=== PATIENT | male | born 1930 | race Caucasian/White ===

== ENCOUNTER 2016-10-20 14:10 | Emergency (ER) | payer MEDICARE, BC ==
[2016-10-20 16:21] VITALS: BP 154/68
--- NOTE | 2016-10-20 16:22 | UC ---
Skin Complaint HPI - HPI Summary HPI Summary: 2 days ago brushed brown insect off of arm, thought he saw a small dark spot left there. Tried scratching/picking at the area, now has very small area of redness and swelling around the spot, still concerned that there is a stinger or other insect part retained. - History of Current Complaint Chief Complaint: UCSkin Time Seen by Provider: 10/20/16 16:03 Stated Complaint: STING W/STINGER STILL IN Hx Obtained From: Patient Onset/Duration: Sudden Onset Skin Exposure Onset/Duration: Days Ago Onset Severity: Mild Current Severity: Mild Location: Discrete Character: Swelling, Redness Aggravating: Nothing Alleviating: Nothing Associated Signs & Symptoms: Positive: Negative Related History: Insect Bite/Sting - Allergy/Home Medications Allergies/Adverse Reactions: Allergies Allergy/AdvReac Type Severity Reaction Status Date / Time No Known Allergies Allergy Verified 10/31/15 15:37 Review of Systems Constitutional: Negative Skin: Other - abrasion, swelling L forearm Eyes: Negative ENT: Negative Respiratory: Negative Cardiovascular: Negative Gastrointestinal: Negative Genitourinary: Negative Motor: Negative Neurovascular: Negative Musculoskeletal: Negative Neurological: Negative Psychological: Negative All Other Systems Reviewed And Are Negative: Yes PMH/Surg Hx/FS Hx/Imm Hx Endocrine History: Hypothyroidism Cardiovascular History: Hypertension - Surgical History Surgical History: Yes Surgery Procedure, Year, and Place: BILATERAL CATARACT EXTRACTION WITH IOL IMPLANTS, [facility]. 2014 RIGHT CARPAL TUNNEL RELEASE, [facility], PRECANCEROUS GROWTHS REMOVED FROM [facility], vein sx on rt leg july 2015 - Family History Known Family History: Positive: Hypertension - Social History Occupation: Retired Alcohol Use: Occasionally Alcohol Amount: ONCE A WEEK Substance Use Type: None Smoking Status (MU): Never Smoked Tobacco - Immunization History Most Recent Influenza Vaccination: Most Recent Tetanus Shot: In ED Most Recent Pneumonia Vaccination: Unknown exact time; pt states has had in past Physical Exam Triage Information Reviewed: Yes Appearance: Well-Appearing, No Pain Distress, Well-Nourished Vital Signs: Initial Vital Signs Temp 98 F 10/20/16 14:24 Pulse 57 10/20/16 14:24 Resp 14 10/20/16 14:24 BP 137/73 10/20/16 14:24 Pulse Ox 98 10/20/16 14:24 Vital Signs Reviewed: Yes Eye Exam: Normal Eyes: Positive: Conjunctiva Clear ENT Exam: Normal ENT: Positive: Normal ENT inspection, Hearing grossly normal, Pharynx normal, TMs normal Neck exam: Normal Neck: Positive: Supple, Nontender, No Lymphadenopathy Respiratory Exam: Normal Respiratory: Positive: Chest non-tender, Lungs clear, Normal breath sounds, No respiratory distress, No accessory muscle use Cardiovascular Exam: Normal Cardiovascular: Positive: RRR, No Murmur Musculoskeletal Exam: Normal Neurological Exam: Normal Psychological Exam: Normal Skin Exam: Other - 2 x 0.75cm linear abrasions on L forearm with very small area of redness around, minimal induration. No streaking, drainage, or abscess Course/Dx - Diagnoses Provider Diagnoses: L forearm insect sting Discharge - Discharge Plan Condition: Stable Disposition: HOME Prescriptions: Mupirocin 2% OINT* [Bactroban 2 % Oint*] 1 applic TOPICAL BID #1 tube Patient Education Materials: Insect Bite or Sting (ED) Referrals: Shawn Mosher MD [Primary Care Provider] - Additional Instructions: I expect the redness and itching on your arm to gradually go down from here. If there is significant swelling, redness, or worsening, please return here or see your primary care provider. I do not see any signs of stingers or other foreign bodies that have been left behind in your skin. Please do not scratch or pick at the area.
== END 2016-10-20 16:23 | disposition home or self-care (01) ==
LOC: UCEAST 14:10
DX: S50.862A Insect bite (nonvenomous) of left forearm, initial encounter (principal); W57.XXXA Bitten or stung by nonvenomous insect and other nonvenomous arthropods, initial encounter; Y93.9 Activity, unspecified; Y92.9 Unspecified place or not applicable; E03.9 Hypothyroidism, unspecified; I10 Essential (primary) hypertension; Z98.42 Cataract extraction status, left eye; Z98.41 Cataract extraction status, right eye; Z96.1 Presence of intraocular lens
CPT/HCPCS: 99212; G0463

== ENCOUNTER 2017-04-10 17:18 | Emergency (ER) | payer MEDICARE, BC ==
[2017-04-10 17:32] VITALS: BP 142/77
--- NOTE | 2017-04-10 17:39 | UC ---
Neck Pain HPI - HPI Summary HPI Summary: Pt presents with right sided neck pain. He tells me that the back of his right neck became painful about 10-14 days ago and has been intermittent ever since. Seems like it is getting worse. Feels like it is "locking up" and is "tight". Denies injury. He tells me that he fell on the ice today, but landed on his left leg and arm - did not hit his head and sustained no injuries. Has not been taking anything for pain. He denies headache, numbness, tingling, shoulder or arm pain. - History of Current Complaint Chief Complaint: Gabe Stated Complaint: HEAD AND NECK PAIN Time Seen by Provider: 04/10/17 17:33 Hx Obtained From: Patient Onset/Duration: Gradual Onset Severity: Moderate Pain Intensity: 8 Pain Scale Used: 0-10 Numeric Character: Dull, Aching - Allergies/Home Medications Allergies/Adverse Reactions: Allergies Allergy/AdvReac Type Severity Reaction Status Date / Time No Known Allergies Allergy Verified 04/10/17 17:26 Home Medications: Home Medications Metoprolol Succinate XL TAB* [Toprol XL TAB*] 100 mg PO DAILY 04/10/17 [History Confirmed 04/10/17] PMH/Surg Hx/FS Hx/Imm Hx - Additional Past Medical History Additional PMH: BPH Previously Healthy: Yes Endocrine History: Hypothyroidism, Dyslipidemia Cardiovascular History: Hypertension - Surgical History Surgical History: Yes Surgery Procedure, Year, and Place: BILATERAL CATARACT EXTRACTION WITH IOL IMPLANTS, [facility]. 2015 RIGHT CARPAL TUNNEL RELEASE, [facility], PRECANCEROUS GROWTHS REMOVED FROM [facility], vein sx on rt leg july 2015 - Family History Known Family History: Positive: Hypertension - Social History Occupation: Retired Lives: With Family Alcohol Use: Occasionally Alcohol Amount: ONCE A WEEK Substance Use Type: None Smoking Status (MU): Never Smoked Tobacco - Immunization History Most Recent Influenza Vaccination: 2013/2014 Most Recent Tetanus Shot: In ED Most Recent Pneumonia Vaccination: Unknown exact time; pt states has had in past Review Of Systems Constitutional: Positive: Negative Skin: Positive: Negative Cardiovascular: Positive: Negative Gastrointestinal: Positive: Negative Musculoskeletal: Positive: Other: - Right neck pain Psychological: Positive: Negative All Other Systems Reviewed And Are Negative: Yes Physical Exam Triage Information Reviewed: Yes Appearance: Well-Appearing, No Pain Distress, Well-Nourished Vital Signs: Initial Vital Signs Temp 97.9 F 04/10/17 17:21 Pulse 64 04/10/17 17:21 Resp 18 04/10/17 17:21 BP 142/77 04/10/17 17:21 Pulse Ox 100 04/10/17 17:21 Vital Signs Reviewed: Yes Eyes: Positive: Conjunctiva Clear, Other: - EOMI. PERRLA. Negative: Conjunctiva Inflamed, Discharge Neck: Positive: Supple, No Lymphadenopathy, Other: - At rest, neck is in a state of forward and lateral flexion to the right. FROM, but with pain on extension. Respiratory: Positive: Chest non-tender, Lungs clear, Normal breath sounds, No respiratory distress, No accessory muscle use Cardiovascular: Positive: RRR, Pulses Normal Musculoskeletal: Positive: Strength Intact - B/L UEs, ROM Intact - B/L UEs, No Edema, Other: - At rest, neck is in a state of forward and lateral flexion to the right. FROM, but with pain on extension. TTP over suboccipital muscles and levator on the right. 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 No obvious fracture is. noted. I suspect this is a cervical muscle strain/dystonia as this closely resembles torticollis/ anterocollis. Advised ibuprofen, benadryl at bedtime, and heat to the area. F/u with PCP if symptoms persist. - Differential Dx/Diagnosis Provider Diagnoses: Cervical muscle dystonia/spasm Discharge - Discharge Plan Condition: Stable Disposition: HOME Patient Education Materials: Spasmodic Torticollis (ED) Referrals: Ludwin Joel MD [Medical Doctor] - If Needed Shawn Mosher MD [Primary Care Provider] - If Needed Additional Instructions: If you develop a fever, shortness of breath, chest pain, new or worsening symptoms - please call your PCP or go to the ED. Your blood pressure was mildly elevated at todays visit. Please see your primary provider within 4 weeks for recheck and re-evaluation. 1) Try taking benadryl at bedtime. Heat the area with a heating pad for 20 minutes three or four times a day. 2) May take ibuprofen 600mg every 6-8 hours as needed. Can also try over the counter lidocaine patches if they will stick to the area. 3) Please schedule a follow up appointment with your PCP or with Orthopedics at the number below if your symptoms continue or worsen.
--- NOTE | 2017-04-10 18:49 | RAD ---
Indication: Neck pain. 5 views of the cervical spine are reviewed. The vertebral bodies appear normal in height. Disc space narrowing at C4-C5, C5-C6 and C6-C7 is noted. No prevertebral soft tissue swelling is noted. IMPRESSION: Degenerative disc disease at C4-C5, C5-C6 and C6-C7. No obvious fracture is noted.
== END 2017-04-10 19:10 | disposition home or self-care (01) ==
LOC: UCEAST 17:18
DX: G24.9 Dystonia, unspecified (principal); M62.838 Other muscle spasm; M50.323 Other cervical disc degeneration at C6-C7 level; N40.0 Benign prostatic hyperplasia without lower urinary tract symptoms; E03.9 Hypothyroidism, unspecified; E78.5 Hyperlipidemia, unspecified; I10 Essential (primary) hypertension; Z98.42 Cataract extraction status, left eye; Z98.41 Cataract extraction status, right eye; Z96.1 Presence of intraocular lens
CPT/HCPCS: 72050; 99212; G0463

== ENCOUNTER 2017-10-08 10:13 | Emergency (ER) | payer MEDICARE, BC ==
--- OUTSIDE RECORDS SUMMARY | 2017-10-08 10:25 | XMS REPORT ---
:1930 External Reference #:[id number] Author Organization [facility] Address [address] [place] [address] Phone [phone] Care Team Providers Name Role Phone Shawn Mosher MD Primary Care Physician Unavailable Payers Type Date Identification Numbers Payment Provider Subscriber Medicare Primary Effective: Policy Number: Medicare Parrish Sofia 1996 [id number] PayID: [id number] [address] [place] [address] [facility] Part B Effective: Policy Number: DEMETRIA Facets Janae Kimberlyn 2012 [id number] PayID: [id number] [address] [address] Medigap Part B Effective: Policy Number: BS Of MARIZOLThuy Cardoso F 2010 [id number] Pavladimir Expires: 2012 PayID: [id number] [address] [address] Problems Date Description Provider Status Onset: 08/25/2011 Benign essential hypertension Fortunato Ziegler M.D. Onset: 08/25/2011 Disturbance in sleep behavior Fortunato Ziegler M.D. Onset: 08/25/2011 Edema Fortunato Ziegler M.D. Onset: 08/25/2011 Electrocardiogram abnormal Fortunato Ziegler M.D. 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 Cigarette Use Never Smoked Cigarettes ETOH Use Occasionally consumes alcohol ETOH Use Drinks 1 Alcoholic Beverage Per Week Smoking Patient has never smoked Recreational Drug Use Denies Drug Use Daily Caffeine Consumes on average 2 cups of regular occas soda coffee per day Exercise Type/Frequency Does not exercise Allergies, Adverse Reactions, Alerts Date Description Reaction Status Severity Comments 04/16/2008 NKDA active Medications Medication Date Status Form Strength Qnty SIG Indications Ordering Provider Soft Foam Large 01/12 Active use as Soheila Farrell 41-46" Hernia Belt /2017 directed MD Jake Asa 04/16 Active 81mg 90uni 1 po qd sol Rollins M.D. Uloric Active Tablets 40mg 90tab po qd Unknown /0000 s Lasix Active Tablets 20mg 30tab 1 tab po Unknown / s qd Metoprolol Active Tablets 50mg twice Unknown Succinate ER /0000 ER 24HR daily, takes w/100mg in the morning Pravastatin Sodium Active Tablets 10mg 90tab 1 po qd Unknown /0000 s Levothyroxine Active Tablets 25mcg 90tab 1 po qd Unknown Sodium /0000 s Multivitamin Men Active Tablets 1 by mouth Unknown /0000 every day Finasteride Active Tablets 5mg 1 by mouth Unknown / every day Ropinirole HCL Active Tablets 1mg take one Unknown /0000 tablet by mouth at bedtime [place]-3 & Vitamin Active Chewtabs 117-100mg daily Unknown D3 Gummies /0000 -Unit Omeprazole 00/00 Active Tablets 20mg [address] every day Metoprolol 04/16 Hx Tablets 50mg 180ta 1 po bid Quta ER bs [facility] 08/24 , M.D. /2011 Avapro 04/16 Hx Tablets 150mg 90tab 1 po bid Qutayb s [facility] 06/02 , M.D. Hydrochlorothiazid 04/16 Hx Tablets 25mg 60tab 1 po qd [facility] , [facility] /2011 Proscar 04/16 Hx Tablets 5mg 90tab 1 po qd Qutayb s [facility] 08/24 , M.D. Fish Oil 04/16 [facility]x Capsules 1200[facility].DIsa Requip 04/16 Hx Tablets 1mg 30tab 1 tablet s twice a day [facility] 06/14 , M.D. Clobetasol 04/16 Hx Cream 0.05% 30G topically Qutaybeh Propionate qd [facility] 08/24 dx: , Nicolette /2011 dermatitis Norvasc 04/16 Hx Tablets 5mg 90tab 1 po qd Qutayb s [facility] 09/14 , M.D. Avapro Hx Tablets 150mg 1 po qd - 06/13 Carac Hx Cream 0.5% as directed - 08/24 Fish Oil Hx Capsules 1200 one po qid - 09/03 Finasteride Hx Tablets 5mg 1 po qd - 06/05 Famotidine Hx Tablets 20mg 60tab bid s - 06/05 Multivitamins Hx Tablets 100.0 1 po qd 0tabs - 06/05 Lovaza Hx Capsules 1gm 4x daily - 09/03 Proscar Hx Tablets 5mg 30tab 1 po qd Shallish, /0000 s MD Shawn Clobetasol Hx Gel 0.05% apply Unknown Propionate topically as needed Cyclobenzaprine Hx Tablets 10mg 30tab one po tid Unknown HCL /0000 s prn spasm - 06/05 Tylenol/Codeine #3 Hx Tablets 300-30mg 20tab 1-2 po q Unknown /0000 s 4-6 hr prn - pain 06/05 Calcipotriene Hx Cream 0.005% Unknown / Metoprolol Hx Tablets 100mg 1 by mouth Unknown Succinate ER /0000 ER 24HR every day in the morning along with a 50mg tablet Fish Oil Hx Capsules 1200mg once a day Unknown DR Requip Hx Tablets 270mg take one Unknown / tablet by mouth in the am and 2 in the pm Amlactin Hx Lotion 12% apply daily Unknown / Medications Administered in Office Medication Date Status Form Strength Qnty SIG Indications Ordering Provider Depomedrol Administered Injection Dirk Blayne, 40MG 017 M.D. Depomedrol Administered Injection Stoddard, Lien, 80MG 010 PA Vital Signs Date Vital Result Comment 09/25/2017 Heart Rate 66 /min BP Systolic Sitting 118 mmHg BP Diastolic Sitting 70 mmHg Respiratory Rate 18 /min Body Temperature 97.9 F 08/14/2017 Heart Rate 76 /min Respiratory Rate 16 /min Body Temperature 98.6 F 07/26/2017 Heart Rate 86 /min Respiratory Rate 16 /min Body Temperature 98.4 F 07/10/2017 Heart Rate 66 /min BP Systolic Sitting 134 mmHg BP Diastolic Sitting 78 mmHg Respiratory Rate 18 /min Body Temperature 97.6 F 06/18/2017 Heart Rate 68 /min BP Systolic 132 mmHg BP Diastolic 80 mmHg Respiratory Rate 18 /min Body Temperature 96.7 F 05/23/2017 Heart Rate 66 /min BP Systolic Sitting 144 mmHg BP Diastolic Sitting 72 mmHg Respiratory Rate 18 /min Body Temperature 97.5 F 04/06/2017 Heart Rate 62 /min Respiratory Rate 16 /min Body Temperature 97.2 F 01/24/2017 Heart Rate 68 /min BP Systolic 140 mmHg BP Diastolic 90 mmHg Respiratory Rate 16 /min Body Temperature 96.3 F 01/10/2017 Height 68 inches 5'8" Weight 185.00 lb Heart Rate 68 /min BP Systolic 142 mmHg BP Diastolic 90 mmHg Respiratory Rate 18 /min Body Temperature 97.6 F BMI (Body Mass Index) 28.1 kg/m2 11/15/2016 Height 68 inches 5'8" Weight 185.00 lb Heart Rate 54 /min BP Systolic 175 mmHg BP Diastolic 80 mmHg Body Temperature 95.8 F BMI (Body Mass Index) 28.1 kg/m2 10/04/2016 Height 68 inches 5'8" Weight 185.00 lb Heart Rate 62 /min BP Systolic 140 mmHg BP Diastolic 78 mmHg Body Temperature 98.3 F BMI (Body Mass Index) 28.1 kg/m2 08/08/2016 Height 69 inches 5'9" Weight 197.00 lb w/shoes Heart Rate 58 /min BP Systolic Sitting 138 mmHg Ra reg cuff BP Diastolic Sitting 80 mmHg Ra reg cuff BMI (Body Mass Index) 29.1 kg/m2 Ejection Fraction 55-60% Echo 08/02/16 06/14/2016 Height 69 inches 5'9" Weight 196.00 lb w/shoes Heart Rate 58 /min BP Systolic Sitting 158 mmHg LA reg cuff BP Diastolic Sitting 92 mmHg LA reg cuff BMI (Body Mass Index) 28.9 kg/m2 Ejection Fraction 60-65% Echo 10/23/14 02/02/2015 Height 69 inches 5'9" Weight 195.00 lb Pain Level 1 BMI (Body Mass Index) 28.8 kg/m2 12/15/2014 Height 69 inches 5'9" Weight 195.00 lb Body Temperature 97.3 F BMI (Body Mass Index) 28.8 kg/m2 12/10/2014 Height 69 inches 5'9" Weight 195.00 lb Pain Level 2 BMI (Body Mass Index) 28.8 kg/m2 11/06/2014 Height 69 inches 5'9" Weight 195.00 lb Pain Level 4 BMI (Body Mass Index) 28.8 kg/m2 05/12/2013 Height 69 inches 5'9" Weight 205.00 lb BP Systolic 148 mmHg BP Diastolic 82 mmHg Pain Level 3-4 neck BMI (Body Mass Index) 30.3 kg/m2 01/29/2013 Height 69 inches 5'9" Weight 201.00 lb Heart Rate 72 /min BP Systolic Sitting 132 mmHg BP Diastolic Sitting 74 mmHg Respiratory Rate 20 /min BMI (Body Mass Index) 29.7 kg/m2 12/18/2012 Height 69 inches 5'9" Weight 205.00 lb BP Systolic 124 mmHg BP Diastolic 78 mmHg Pain Level 4-5 neck BMI (Body Mass Index) 30.3 kg/m2 06/07/2012 Height 69 inches 5'9" Weight 198.00 lb Heart Rate 60 /min BP Systolic Sitting 126 mmHg BP Diastolic Sitting 78 mmHg Respiratory Rate 20 /min BMI (Body Mass Index) 29.2 kg/m2 09/11/2011 Height 69 inches 5'9" Weight 213.00 lb Heart Rate 68 /min BP Systolic Sitting 108 mmHg BP Diastolic Sitting 64 mmHg BMI (Body Mass Index) 31.5 kg/m2 09/04/2011 Height 69 inches 5'9" Weight 213.00 lb Heart Rate 64 /min BP Systolic 140 mmHg BP Diastolic 72 mmHg BMI (Body Mass Index) 31.5 kg/m2 08/25/2011 Height 69 inches 5'9" Weight 212.00 lb Heart Rate 53 /min BP Systolic 122 mmHg BP Diastolic 66 mmHg BMI (Body Mass Index) 31.3 kg/m2 09/14/2009 Weight 206.00 lb Heart Rate 53 /min BP Systolic 140 mmHg BP Diastolic 80 mmHg Respiratory Rate 18 /min BMI (Body Mass Index) 51.6 kg/m2 06/02/2009 Height 69 inches 5'9" Weight 206.00 lb Heart Rate 61 /min BP Systolic Sitting 124 mmHg L BP Diastolic Sitting 70 mmHg L BMI (Body Mass Index) 30.4 kg/m2 05/26/2008 Weight 206.00 lb Heart Rate 60 /min BP Systolic Sitting 130 mmHg BP Diastolic Sitting 68 mmHg Respiratory Rate 16 /min 04/16/2008 Height 69 inches 5'9" Weight 204.00 lb Heart Rate 59 /min BP Systolic Sitting 142 mmHg L BP Diastolic Sitting 84 mmHg L BMI (Body Mass Index) 30.1 kg/m2 Results Description No Information Procedures Date CPT Code Description Status 10/04/2016 60178 Inject/Drain Joint/Bursa Major W/O US Completed 08/02/2016 60519 ECHO Transthoracic, Real-Time 2D With Doppler And Color Completed Flow 06/14/2016 07091 Holter Monitor Review (24 hr)dr review & interp only Completed 06/14/2016 36195 EKG Tracing & Interpretation Completed 06/13/2016 21694 Holter Monitor Review (24 hr)dr review & interp only Completed 06/13/2016 51998 ECG Monitor/Recording W/Visual Superimposition Scanning Completed 06/12/2016 70452 ECG Monitor/Recording W/Visual Superimposition Scanning Completed 01/14/2015 94425 Removal Devitalization Tissue Wound Less Than Equal 20 Completed Square CM 01/05/2015 79923 Removal Devitalization Tissue Wound Less Than Equal 20 Completed Square CM 12/24/2014 19332 Removal Devitalization Tissue Wound Less Than Equal 20 Completed Square CM 12/24/2014 50779 Removal Devitalized Tissue Wound Greater Than 20 Square Completed CM 12/03/2014 71361 Carpal Tunnel Release Completed 10/23/2014 16927 ECHO Transthorasic Realtime 2D W Doppler & Color Flow Completed Hosp 10/24/2013 77746 Nerve Conduction 07-08 Studies Completed 01/29/2013 54297 EKG Tracing & Interpretation Completed 01/21/2013 75302 ECHO Transthoracic, Real-Time 2D With Doppler And Color Completed Flow 06/07/2012 31448 EKG Tracing & Interpretation Completed 09/04/2011 06263 ECHO Transthorasic Realtime 2D W Doppler & Color Flow Completed Hosp 09/04/2011 57759 Pulse Wave/Continuous-Interp.RPT Completed 09/04/2011 64296 Color Flow Doppler/Interp & Reprt Completed 08/25/2011 03449 EKG Tracing & Interpretation Completed 09/14/2009 20942 EKG Tracing & Interpretation Completed 08/09/2009 64684 Xray Knee 3 Views Completed 08/09/2009 31627 Xray Knee 3 Views Completed 08/09/2009 93040 Inject/Drain Joint/Bursa Major W/O US Completed 08/09/2009 21687 Inject/Drain Joint/Bursa Major W/O US Completed 06/02/2009 51405 EKG Tracing & Interpretation Completed 05/07/2008 80170 Stress Test Completed 05/07/2008 87122 Stress Test Completed 05/07/2008 87531 ECHO/Stress Completed 05/07/2008 85901 ECHO/Stress Completed 05/07/2008 22511 ECHO Stress Test Incl Perf Contiuous ekg Monitoring Completed W/Phys Superv 05/01/2008 61360 Color Doppler Completed 05/01/2008 12385 Pulse Doppler & Continuous Wave Completed 05/01/2008 44766 Echocardiogram Completed 05/01/2008 78838 ECHO Transthoracic, Real-Time 2D With Doppler And Color Completed Flow 04/16/2008 84198 EKG Tracing & Interpretation Completed Encounters Type Date Location Provider CPT E/M Dx Office Visit 08/14/2017 [facility] [place] [address] K40.90 2:15p Of [facility] [employer] Office Visit 07/26/2017 [facility] Immanuel Marley, 87490 K40.90 1:15p Of [facility] Office Visit 07/10/2017 [facility] [place] [address] K40.90 1:30p Of [facility] [employer] Office Visit 06/18/2017 [facility] Immanuel Marley, 57457 K40.90 1:15p Of [facility] Office Visit 05/23/2017 [facility] [place] [address] K40.90 9:00a Of [facility] [employer] Office Visit 04/06/2017 [facility] [place] [address] K40.90 10:00a Of [facility] Office Visit 01/24/2017 [facility] [place] [address] K40.90 11:00a Of [facility] [employer] Office Visit 01/10/2017 [facility] [place] [address] K40.90 9:00a Of [facility] Office Visit 11/15/2016 [facility] Avery Cisneros M.D. 70845 M17.12 9:15a [facility] Office Visit 10/04/2016 [facility] Avery Cisneros M.D. 22576 M17.12 10:15a [facility] Office Visit 08/08/2016 [facility] July Bejarano 63829 I49.1 4:00p Nicolette Rollins I10 I49.3 Office Visit 06/14/2016 2:20p [facility] Antonitaybjennifer Rollins, 62194 R00.2 Nicolette I10 I49.1 I49.3 I71.9 R00.1 Office Visit 06/29/2015 10:18a [facility] Brice Carranza, 06381 L97.212 AT [facility] Nicolette I87.331 Office Visit 01/26/2015 9:22a [facility] Brice Carranza, 58501 I70.232 AT [facility] I83.012 E11.621 I89.0 Office Visit 01/21/2015 8:58a [facility]ranza, 85049 [facility] I[facility].012 E11.621 Office Visit 12/24/2014 11:03a [facility] Brice Carranza, 63785 I83.012 [facility] I70.232 Office Visit 11/06/2014 11:40a [facility] Marian 77293 354.0 Of Jose Calix M.D. Office Visit 10/23/2014 12:35p [facility], 49684 780.2 [facility] Nicolette 401.9 585.3 272.4 Office Visit 05/12/2013 9:30a [facility] Brice Henning M.D. 09797 721.0 Of [facility] Office Visit 01/29/2013 10:00a [facility] Antonitaybjennifer S. 33442 401.1 Nicolette Rollins 424.0 427.69 794.31 Office Visit 12/18/2012 2:30p [facility] Brice Henning M.D. 25598 721.0 Of [facility] Office Visit 06/07/2012 8:40a [facility] Qutaybjennifer S. 89447 401.1 Nicolette Rollins 782.3 794.31 780.50 Office Visit 09/25/2011 10:00a [facility] Nurse Visit 57587 401.1 Office Visit 09/11/2011 8:30a [facility] Consuelo Turner N.PIsa 97307 401.1 782.3 Office Visit 09/04/2011 1:30p [facility] Consuelo Turner N.PIsa 90725 401.1 Office Visit 08/25/2011 2:00p [facility] Antonitaybeh Darci Rollins 17719 401.1 Nicolette 780.50 782.3 794.31 Office Visit 08/24/2010 9:00a [facility] Of Will Cope, 34558 721.3 Alverto Will 719.46 Office Visit 09/14/2009 11:20a [facility] Qutaybeh S. 80417 401.1 Nicolette Rollins Office Visit 08/09/2009 1:00p [place] [address] 716.96 [facility] Office Visit 06/02/2009 8:40a [facility] Antonitaybeh S. 78671 401.1 Nicolette Rollins 780.50 794.31 Office Visit 05/26/2008 8:20a [facility] Qutaybeh SIsa Rollins, 53864 401.1 Nicolette 780.50 Office Visit 04/16/2008 3:40p [facility] Qutaybeh SIsa Rollins, 29616 401.0 MKayli 786.50 794.31 Plan of Care 08/14/2017 - Soheila Joseph MDK40.90 Unil inguinal hernia, w/o obst or gangr, not spcf as recurFollow up:As needed
--- NOTE | 2017-10-08 10:28 | UC ---
Truncal Trauma HPI - HPI Summary HPI Summary: 87 yo male presents s/p fall. He tells me that yesterday he was walking down concrete steps and misjudged how far down the step was. Tripped and fell onto his left side. Did not hit his head or have LOC. Here today with left rib pain and left upper arm pain. Denies numbness, tingling, SOB, cough, or chest pain. - History Of Current Complaint Chief Complaint: UCUpperExtremity Stated Complaint: RIB INJURY Time Seen by Provider: 10/08/17 10:26 Hx Obtained From: Patient Onset/Duration: Sudden Onset Severity Initially: Severe Severity Currently: Severe Pain Intensity: 8 Pain Scale Used: 0-10 Numeric - Allergies/Home Medications Allergies/Adverse Reactions: Allergies Allergy/AdvReac Type Severity Reaction Status Date / Time No Known Allergies Allergy Verified 10/08/17 10:30 Home Medications: Home Medications Penicillin VK TAB* [Penicillin VK 250 mg Tab*] 500 mg PO QID 10/08/17 [History Confirmed 10/08/17] PMH/Surg Hx/FS Hx/Imm Hx - Additional Past Medical History Additional PMH: BPH Endocrine History: Thyroid Disease, Dyslipidemia Cardiovascular History: Hypertension - Surgical History Surgical History: Yes Surgery Procedure, Year, and Place: BILATERAL CATARACT EXTRACTION WITH IOL IMPLANTS, [facility]. 2014 RIGHT CARPAL TUNNEL RELEASE, [facility], PRECANCEROUS GROWTHS REMOVED FROM SCALP, vein sx on rt leg july 2015 - Family History Known Family History: Positive: Hypertension - Social History Occupation: Retired Lives: With Family Alcohol Use: Occasionally Alcohol Amount: ONCE A WEEK Substance Use Type: None Smoking Status (MU): Never Smoked Tobacco - Immunization History Most Recent Influenza Vaccination: Most Recent Tetanus Shot: In ED Most Recent Pneumonia Vaccination: Unknown exact time; pt states has had in past Review of Systems Constitutional: Negative Skin: Negative Respiratory: Negative Cardiovascular: Negative Neurovascular: Negative Musculoskeletal: Other: - Left Rib pain. Left upper arm pain. Neurological: Negative Psychological: Negative All Other Systems Reviewed And Are Negative: Yes Physical Exam - Summary Physical Exam Summary: GENERAL: NAD. WDWN. No pain distress. SKIN: Large ecchymosis to left upper arm. No open wounds. NECK: Supple. Nontender. No lymphadenopathy. CHEST: CTAB. No r/r/w. No accessory muscle use. Breathing comfortably and in no distress. CV: Pulses intact radial and ulnar. MSK: LEFT ribs: TTP 6th-9th. LEFT shoulder: NTTP. FROM passively. LEFT upper arm : Moderate TTP overlying area of ecchymosis. Left elbow/wrist/fingers: NTTP and FROM. Left UE: Strength 5/5 including shoe stitcher odd strength. No obvious bony deformities. NEURO: Alert. Sensations intact hand and all fingers. PSYCH: Age appropriate behavior. Triage Information Reviewed: Yes Vital Signs: Vital Signs: Temp Pulse Resp BP Pulse Ox 97.9 F 67 18 130/72 98 10/08/17 10:22 10/08/17 10:22 10/08/17 10:22 10/08/17 10:22 10/08/17 10:22 Vital Signs Reviewed: Yes Truncal Trauma Course/Dx - Course Course Of Treatment: XR: IMPRESSION: OSTEOARTHRITIS. NO ACUTE OSSEOUS INJURY. IF SYMPTOMS PERSIST, RECOMMEND REPEAT IMAGING. FINDINGS: There is no displaced rib fracture or pneumothorax. The visualized lungs are. clear. There is a scoliotic curvature of the spine. Suspect rib and arm contusion. Rx for lidocaine patch. F/u with PCP if symptoms persist or worsen. - Differential Dx/Diagnosis Provider Diagnoses: Left rib contusion. Left arm contusion. Fall Discharge - Sign-Out/Discharge Documenting (check all that apply): Patient Departure - Discharge Plan Condition: Stable Disposition: HOME Prescriptions: Lidocaine PATCH 5%* [Lidoderm 5% Patch*] 1 patch TRANSDERM DAILY PRN #1 box PRN Reason: Pain Patient Education Materials: Rib Contusion (ED) Referrals: Shawn Mosher MD [Primary Care Provider] - Additional Instructions: If you develop a fever, shortness of breath, chest pain, new or worsening symptoms - please call your PCP or go to the ED. Your blood pressure was high at todays visit. Please see your primary provider within 4 weeks for recheck and re-evaluation. - Billing Disposition and Condition Condition: STABLE Disposition: Home
[2017-10-08 10:30] VITALS: BP 130/72
--- NOTE | 2017-10-08 11:19 | RAD ---
HISTORY: Pain. Fall left-sided pain COMPARISONS: None VIEWS: 7, Frontal view of the chest with frontal and oblique views of the left hemithorax FINDINGS: There is no displaced rib fracture or pneumothorax. The visualized lungs are clear. There is a scoliotic curvature of the spine. IMPRESSION: NO DISPLACED RIB FRACTURE OR PNEUMOTHORAX.
--- NOTE | 2017-10-08 11:22 | RAD ---
HISTORY: Pain. Fall COMPARISONS: None VIEWS: 2, Frontal internal rotation and external rotation views of the left humerus FINDINGS: BONE DENSITY: Normal. BONES: There is no displaced fracture. JOINTS: There is moderate a.c. and glenohumeral osteoarthritis. ALIGNMENT: There is no dislocation. SOFT TISSUES: Unremarkable. OTHER FINDINGS: None. IMPRESSION: OSTEOARTHRITIS. NO ACUTE OSSEOUS INJURY. IF SYMPTOMS PERSIST, RECOMMEND REPEAT IMAGING.
== END 2017-10-08 11:41 | disposition home or self-care (01) ==
LOC: UCEAST 10:13
DX: S20.212A Contusion of left front wall of thorax, initial encounter (principal); S40.022A Contusion of left upper arm, initial encounter; I10 Essential (primary) hypertension; W01.0XXA Fall on same level from slipping, tripping and stumbling without subsequent striking against object, initial encounter; Y92.9 Unspecified place or not applicable
CPT/HCPCS: 99212; G0463

== ENCOUNTER 2017-11-04 16:25 | Emergency (ER) | payer MEDICARE, BC ==
[2017-11-04] MEDS ORDERED: Ondansetron INJ* 2 MG/ML VIAL IV ONE (16:41)
[2017-11-04] MEDS ORDERED: Morphine VIAL* 4 MG/ML VIAL (1 ml vial) IV ONE (16:41)
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
[2017-11-04] MEDS ORDERED: Morphine INJ* 2 MG/ML 1 ML SYRINGE (TWO MG - NEW SYRINGE VERSION) ONE (16:57)
[2017-11-04] MEDS ORDERED: Morphine INJ* 2 MG/ML 1 ML SYRINGE (TWO MG - NEW SYRINGE VERSION) IV PRN (16:58)
[2017-11-04 16:59] LABS: Hematocrit 38 % (42-52); Hemoglobin 13.2 g/dl (14.0-18.0); Mean Corpuscular HGB Conc 35 g/dl (31-36); Mean Corpuscular Hemoglobin 30 pg (27-31); Mean Corpuscular Volume 87 fL (80-94); Mean Platelet Volume 8.8 um3 (7.4-10.4); Platelet Count 249 10^3/ul (150-450); Red Blood Count 4.43 10^6/ul (4.00-5.40); Red Cell Distribution Width 14 % (10.5-15); White Blood Count 6.4 10^3/ul (3.5-10.8)
[2017-11-04 17:15] LABS: EGFR Non-African American 44.4 (>60)
[2017-11-04] MEDS ORDERED: NS 0.9% 1000 ML* 1,000 ML IV ONE (17:23)
--- NOTE | 2017-11-04 17:41 | RAD ---
HISTORY: FALL PAIN COMPARISONS: None VIEWS: 2, Frontal and lateral views of the left elbow FINDINGS: BONE DENSITY: Normal. BONES: There is no displaced fracture. JOINTS: There is mild osteoarthritis of the ulnar-trochlear articulation. ALIGNMENT: There is no dislocation. SOFT TISSUES: Unremarkable. OTHER FINDINGS: None. IMPRESSION: OSTEOARTHRITIS. NO ACUTE OSSEOUS INJURY. IF SYMPTOMS PERSIST, RECOMMEND REPEAT IMAGING.
--- NOTE | 2017-11-04 17:41 | RAD ---
HISTORY: FALL PAIN, DEFORMITY, R/O DISLOC COMPARISONS: None VIEWS: 6, Frontal internal rotation, external rotation, and outlet views of the left shoulder FINDINGS: BONE DENSITY: Normal. BONES: There is no displaced fracture. JOINTS: There is osteoarthritis of the a.c. and glenohumeral joints. ALIGNMENT: There is anterior dislocation of the humeral head with persistent glenoid fossa. SOFT TISSUES: Unremarkable. OTHER FINDINGS: None. IMPRESSION: LEFT SHOULDER DISLOCATION.
--- NOTE | 2017-11-04 17:42 | RAD ---
HISTORY: FALL PAIN COMPARISONS: October 08, 2017 VIEWS: 4, Frontal view of the chest with frontal and oblique views of the left hemithorax FINDINGS: There is no displaced rib fracture or pneumothorax. The visualized lungs are clear. As noted on the left shoulder series, there is left shoulder dislocation. IMPRESSION: LEFT SHOULDER DISLOCATION. NO DISPLACED RIB FRACTURE OR PNEUMOTHORAX.
[2017-11-04] MEDS ORDERED: fentaNYL* 50 MCG/ML 2 ML VIAL (100 MCG VIAL) ONE (17:53)
[2017-11-04] MEDS ORDERED: Atropine 1MG/ML INJ* 1 ML VIAL ONE (17:53)
[2017-11-04] MEDS ORDERED: EPHEDrine (Pressors)* 50 MG/ML VIAL ONE (17:53)
[2017-11-04] MEDS ORDERED: Propofol* 10 MG/ML 20 ML BTL IV PUSH ONE ×2 (17:53→17:54)
[2017-11-04] MEDS ORDERED: Succinylcholine* 20 MG/ML 10 ML VIAL ONE (17:53)
[2017-11-04] MEDS ORDERED: Midazolam* 1 MG/ML 5 ML VIAL (5 MG) ONE (17:53)
[2017-11-04] MEDS ORDERED: Lidocaine 2% PF * 5 ML VIAL ONE (17:53)
--- NOTE | 2017-11-04 18:26 | RAD ---
HISTORY: POST REDUCTION COMPARISONS: November 04, 2017 at 5:05 PM VIEWS: 2, frontal and outlet views of the left shoulder FINDINGS: BONE DENSITY: Normal. BONES: There is minimal fragmentation along the greater tuberosity of the left humerus suggestive of a Hill-Sachs injury. JOINTS: There is mild osteoarthritis of the a.c. and glenohumeral joints. ALIGNMENT: There has been interval reduction of the left shoulder dislocation. SOFT TISSUES: Unremarkable. OTHER FINDINGS: None. IMPRESSION: INTERVAL REDUCTION OF LEFT SHOULDER DISLOCATION WITH PROBABLE SMALL HILL-SACHS DEFORMITY OF THE HUMERAL HEAD
[2017-11-04 19:06] VITALS: BP 117/60
== END 2017-11-04 19:28 | disposition home or self-care (01) ==
LOC: ED 16:25
DX: S43.085A Other dislocation of left shoulder joint, initial encounter (principal); E03.9 Hypothyroidism, unspecified; I25.10 Atherosclerotic heart disease of native coronary artery without angina pectoris; I10 Essential (primary) hypertension; W10.9XXA Fall (on) (from) unspecified stairs and steps, initial encounter; Y92.9 Unspecified place or not applicable
CPT/HCPCS: 23650; 36415; 80048; 85027; 93005; 96361; 96374; 96375; 99284; J0330; J0461; J2250; J2270; J2405; J2704; J3010

== ENCOUNTER → 2018-01-10 06:25 | Day surgery (SDC) | payer MEDICARE, BC ==
--- NOTE | 2017-12-25 17:25 | HP ---
CC: Dr. Mosher; Dr. Rollins * PREOPERATIVE HISTORY AND PHYSICAL: DATE OF ADMISSION: 01/10/18 DATE OF PREOPERATIVE HISTORY AND PHYSICAL EXAMINATION: 12/25/17. This patient is scheduled for same-day surgery admission by Dr. De La Cruz on , 01/10/18. ATTENDING SURGEON: Dr. Jh De La Cruz *(dictated by Mahnaz Brunson NP). CHIEF COMPLAINT: Right groin hernia. HISTORY OF PRESENT ILLNESS: The patient is an 87-year-old male, referred to Dr. De La Cruz from Dr. Mosher for evaluation of a right inguinal hernia. The patient reports that he has had this hernia for some time and has actually seen several other providers in this practice. More recently, he thought it was a little larger and more uncomfortable. He denies any signs or symptoms to suggest incarceration or strangulation. He has never had abdominal or inguinal surgery. Dr. De La Cruz examined the patient and notes a moderately large right inguinal hernia that is down into the scrotum; it is soft and nontender and not easily reducible with him standing. The left side is without herniation. Dr. De La Cruz discussed the findings with the patient and his son and has recommended open right inguinal hernia repair with mesh as the same day surgery procedure. He discussed the nature of the surgical procedure, the rationale for the procedure, the relevant risks and benefits and today, I reviewed the typical postoperative care and recovery. The patient and his son has had a chance to ask questions and stated that they understand the information and are satisfied with the answers given to their questions. The patient will sign surgical consent on the day of surgery. PAST MEDICAL HISTORY: Significant for hypertension; hyperlipidemia; cervical spondylosis; GERD; Graves' disease, status post radioactive iodine; benign prostatic hypertrophy; hemorrhoids; gout; chronic renal insufficiency; chronic lymphedema of the lower extremities. PAST SURGICAL HISTORY: Bilateral cataract extraction; right carpal tunnel release; femoral popliteal revascularization on the right; excision of basal cell cancer from the scalp. MEDICATIONS: 1. Omeprazole 20 mg p.o. daily. 2. Pravastatin 10 mg p.o. daily. 3. Furosemide 20 mg 1 to 2 tablets daily. 4. Ropinirole 1 mg 1 tablet every morning and 2 tablets every evening. 5. Levothyroxine 25 mcg 1 tablet daily. 6. Finasteride 5 mg 1 tablet daily. 7. Uloric 40 mg 1 tablet daily. 8. Metoprolol ER 50 mg p.o. b.i.d. 9. Aspirin 81 mg p.o. daily and he will hold that for 5 days preoperatively taking last dose 01/04/18. 10. He also takes fish oil supplements. ALLERGIES: No known drug allergies. FAMILY HISTORY: Father at age 70 due to cirrhosis. Mother due to stroke and myocardial infarction. 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 He rarely drinks alcohol and denies the use of other substances; his son accompanied him to the visit today and will be very supportive to the patient postoperatively and will arrange family support for approximately 3 days postoperatively. REVIEW OF SYSTEMS: Constitutional: No fevers or chills. No recent weight loss. Endocrine: No diabetes; he is on thyroid replacement, status post radioactive iodine treatment for Graves' disease. Hematologic: No easy bruising or bleeding. He has never received a blood transfusion. Respiratory: No chronic cough. Dyspnea on mild exertion. Cardiovascular: No anginal chest pain or palpitations; he is followed by Dr. Rollins; he had echocardiogram in July of 2016 with normal left ventricular systolic function with EF 55% to 60%; he had a recent Holter monitor that revealed frequent PACs and rare to occasional PVCs. He has chronic swelling of the lower extremities; he will have an EKG with his preadmission testing today and Dr. De L aCruz sent a message to Dr. Rollins to review the EKG and also to advice is if any other preoperative cardiology workup was indicated. Gastrointestinal: No nausea or vomiting. No chronic diarrhea or chronic constipation. No change in bowel habits. He does have hemorrhoids, but no GI bleeding. Genitourinary: No dysuria, history of benign prostatic hypertrophy. Musculoskeletal: Mild lower back pain. Integumentary: Bilateral lower extremities with changes of venous stasis. No ulcerations. Chronic edema of the lower extremities and he wears compression stockings and also uses machine at home to relieve the lymphedema. Neurologic: No headache or blurred vision. No areas of focal weakness or numbness. General: No history of deep vein thrombosis or pulmonary embolism, no previous anesthesia complications. PHYSICAL EXAMINATION GENERAL SURVEY: The patient is an 87-year-old male, somewhat frail appearing, overweight, in no acute distress. VITAL SIGNS: Height 69 inches, weight 187 pounds, body mass index 27.6, blood pressure 122/72, pulse 60 and somewhat irregular, respiratory rate 18, temperature 98.1 tympanic. HEENT: Benign. NECK: Supple. No cervical lymphadenopathy. No carotid bruits. LUNGS: Breath sounds bilaterally clear and equal. HEART: Irregular, but no irregularly irregular. No obvious murmurs or rubs. ABDOMEN: Obese, soft, active bowel sounds. Inguinal exam is done by Dr. De La Cruz revealed a moderately large right inguinal hernia down into the scrotum, soft, nontender, not easily reducible with the patient standing. Left inguinal region is without herniation. RECTAL EXAM: Deferred. EXTREMITIES: With lower extremities with 1+ pitting edema bilaterally and changes of venous stasis, but no ulcerations. NEUROLOGIC: Alert and oriented x3. Steady gait. Limited mobility of the left upper extremity due to left shoulder dislocation in October 2017. SKIN: Warm, dry, and intact. IMPRESSION: Right inguinal hernia. PLAN: Same-day surgery admission to Dr. De La Cruz's service on , 01/10/18 , for open right inguinal hernia repair with mesh. JIM BRUNSON NP [id number]/[facility] #: [id number] [place]
[~2018-01-10 06:25] MED LIST: Acetaminophen TAB* 325 MG PO PRN; Buffered Lidocaine 0.9% SYRIN* 5 ML/SYR SYRINGE INTRADERM ONE; Buffered Lidocaine 0.9% SYRIN* 5 ML/SYR SYRINGE ONE; Bupivacaine 0.25% W/EPI* 10 ML SDV ONE; Bupivacaine 0.5% W/EPI SDV* 30 ML VIAL ONE; Cocaine 4% TOPICAL* 4 ML TOP.SOLN ONE; EPHEDrine (Pressors)* 50 MG/ML VIAL ONE; Famotidine IV* 10 MG/ML 2 ML (20 mg) ONE; HYDROcodone/ACETAMIN 5-325 MG* 1 TAB ONE; HYDROcodone/ACETAMIN 5-325 MG* 1 TAB PO PRN; Lidocaine 1% INJ* 10 MG/ML 30 ML SDV ONE; Lidocaine 2% PF * 5 ML VIAL ONE; Midazolam* 1 MG/ML 2 ML VIAL (2 MG) ONE; Naloxone* 0.4 MG/ML 1 ML VIAL IV PRN; Ondansetron INJ* 2 MG/ML VIAL IV PRN; Ondansetron INJ* 2 MG/ML VIAL ONE; PROCHLORPERAZINE INJ 5 MG/ML 2 ML VIAL IV PRN; Propofol* 10 MG/ML 20 ML BTL IV PUSH ONE; ceFAZolin 2 GM PREMIX in ORs 2 GM/50 ML BAG IVPB ONE; diPHENhydraMINE IV* 50 MG/ML 1 ml VIAL (BENADRYL) IV PRN; fentaNYL* 50 MCG/ML 2 ML VIAL (100 MCG VIAL) ONE
--- NOTE | 2018-01-10 08:42 | OP ---
Operative Report - Blank - Operative Report Date of Operation: 01/10/18 Note: Brief Operative Note Preop Dx: Right Inguinal Hernia Postop Dx: same; indirect Procedure: open repair RIH w/ mesh Anesthesia: General (LMA); local Surgeon: Jono Work Force Advisor: DAVY Marley Fluids: 700 ml RL EBL: < 25 ml Specimen: hernia sac Drains: none Findings: dictated
[2018-01-10] MEDS: fentaNYL* 50 MCG/ML 2 ML VIAL (100 MCG VIAL) IV PRN ×2 (09:22→10:34)
[2018-01-10 11:51] VITALS: BP 152/77
--- NOTE | 2018-01-10 22:53 | OP ---
CC: Dr. Shawn Mosher * DATE OF OPERATION: 01/10/18 - [facility] DATE OF : 32 SURGEON: Jh De La Cruz MD DIRECTOR RECORDS MANAGEMENT: DAVY Hernandez ANESTHESIOLOGIST: Dr. Vasquez. ANESTHESIA: MAC converted to general anesthesia. PRE-OP DIAGNOSIS: Right inguinal hernia. POST-OP DIAGNOSIS: Right inguinal hernia. OPERATIVE PROCEDURE: Repair of large right inguinal scrotal hernia. DESCRIPTION OF PROCEDURE: The patient was supine on the operating room table. After adequate intravenous sedation, compression stockings, Paulette Hugger warmer, and intravenous antibiotics, the right groin was prepped with antiseptic, draped in a sterile fashion. Local infiltrative anesthesia was administered and approximately 3-inch incision was created and dissection carried down to the external oblique, which was opened in the direction of its fibers. The patient was eventually converted to general anesthetic. The cord structures were encircled with a Lyn drain, tented upward. A large inguinal scrotal hernia sac was dissected free. It had omental contents. The sac was maybe 5 inches long, so it was ligated at the base and amputated and the specimen sent in formalin for pathology and the remainder was reduced into the inguinal canal , where upon a cone mesh plug was placed into the internal ring and sutured there using 2-0 Vicryl. Second piece of mesh was placed over the inguinal floor , sutured at the tubercle. Tails were split, brought around the cord structures , tacked down laterally. External oblique was closed over top with 2-0 Vicryl, John's with 3-0 Vicryl, skin with 4-0 Prolene followed by a sterile dressing. He tolerated the procedure well, was awake and brought to Recovery in good condition. There were no complications, no drains. Pathologic specimen was hernia sac. Sponge and instrument counts correct. Estimated blood loss 25 mL. [id number]/[facility] #: [id number] [facility]
== END | disposition home or self-care (01) ==
LOC: OR 06:25
PROVIDERS: ATTEND Surgery
DX: K40.90 Unilateral inguinal hernia, without obstruction or gangrene, not specified as recurrent (principal); I10 Essential (primary) hypertension; E78.5 Hyperlipidemia, unspecified; K21.9 Gastro-esophageal reflux disease without esophagitis; N18.9 Chronic kidney disease, unspecified; N40.0 Benign prostatic hyperplasia without lower urinary tract symptoms
CPT/HCPCS: 88302; A9270-GY; C1781; J0690; J2250; J2405; J2704; J3010

== ENCOUNTER 2018-01-14 12:03 | Emergency (ER) | payer MEDICARE, BC ==
--- OUTSIDE RECORDS SUMMARY | 2018-01-14 12:30 | XMS REPORT ---
:1930 External Reference #:[id number] Author Organization [employer] [facility] Address [address] [place] [address] Phone [phone] Care Team Providers Name Role Phone Shawn Mosher MD Primary Care Physician Unavailable Payers Type Date Identification Numbers Payment Provider Subscriber Medicare Primary Policy Number: [id number] Medicare Parrish Sofia PayID: [id number] [address] [place] [address] [employer] Part B Effective: 1996 Policy Number: Medicare Parrish Sofia [id number] Expires: 2017 PayID: [id number] [address] [place] [address] Medigap Part B Effective: Policy Number: DEMETRIA Facets Janae Felizngaz 2012 [id number] PayID: [id number] [address] [address] [employer] Part B Effective: Policy Number: BS Of IMANI Cardoso F 2010 [id number] Paolangeli Expires: 2012 PayID: [id number] [address] [address] Problems Date Description Provider Status Onset: 08/25/2011 Benign essential hypertension Fortunato Ziegler M.D. Onset: 08/25/2011 Disturbance in sleep behavior Fortunato Ziegler M.D. Onset: 08/25/2011 Edema Fortunato Ziegler M.D. Onset: 08/25/2011 Electrocardiogram abnormal Fortunato Ziegler M.D. 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 Active Onset: 11/23/2017 Closed fracture dislocation Ban Mascorro M.D. Active shoulder joint Family History Date Family Member(s) Problem(s) Comments General Heart Disease General Stroke General Hypertension General Diabetes General Rheumatoid Arthritis : (age 70 Father due to cirrhosis Years) Mother due to [place] () Mother due to Stroke () Siblings 2 sister - CAD, DM - at age 80's brother - alive, CAD/HTN Social History Type Date Description Comments Marital Status Lives With Occupation Retired [employer] Cigarette Use Never Smoked Cigarettes ETOH Use [...] Form Strength Qnty SIG Indications Ordering Provider Hydrocodone-Acetam 12/25 Active Tablets 5-325mg 10tab 1 tab by Mahnaz pelayo s mouth B. every 6 [place], hours as [employer] needed for pain Soft Foam Large 01/12 Active use as Soheila Bud 41-46" Hernia Belt /2017 directed MD Jake Asa 04/16 Active 81mg 90uni 1 po qd Antonijovany sol Rollins M.D. Uloric Active Tablets 40mg 90tab po qd Unknown /0000 s Lasix Active Tablets 20mg 30tab 1 tab po Unknown /0000 s qd Metoprolol Active Tablets 50mg take 1 tab Unknown Succinate ER /0000 ER 24HR twice a day Pravastatin Sodium Active Tablets 10mg 90tab 1 po qd s Levothyroxine Active Tablets 25mcg 90tab 1 po qd Unknown s Multivitamin Men Active Tablets 1 by mouth Unknown every day Finasteride Active Tablets 5mg 1 by mouth Unknown every day Ropinirole HCL Active Tablets 1mg take one tablet by mouth in the morning and 2 in the evening Curtice-3 & Vitamin Active Chewtabs 117-100mg daily Unknown D3 Gummies / -Unit Omeprazole Active Tablets 20mg [address] every day Fish Oil Active Capsules 1000mg 1 by mouth once a day Metoprolol 04/16 Hx Tablets 50mg 180ta 1 po bid [facility] Avapro 04/16 Hx Tablets 150mg 90tab 1 po bid Qutayb s S. - Maghaydah, 06/02 M.D. Hydrochlorothiazid 04/16 Hx Tablets 25mg 60tab 1 po qd Qutaybeh s S. - Maghaydah, 08/24 M.D. Proscar 04/16 Hx Tablets 5mg 90tab 1 po qd Qutayb s S. - Maghaydah, 08/24 M.D. Fish Oil 04/16 Hx Capsules 1200mg 1 po Tri Qutayb Weekly S. - Maghaydah, 06/02 M.D. Requip 04/16 Hx Tablets 1mg 30tab 1 tablet yb s twice a S. - day Maghaydah, 06/14 M.D. Clobetasol 04/16 Hx Cream 0.05% 30G topically Qutaybeh Propionate qd S. - Maghaydah, 08/24 M.D. dx: dermatitis Norvasc 04/16 Hx Tablets 5mg 90tab 1 po qd Qutayb s S. - Maghaydah, 09/14 M.D. Avapro Hx Tablets 150mg 1 po qd - 06/13 Carac Hx Cream 0.5% as Unknown /0000 directed - 08/24 Fish Oil Hx Capsules 1200 one po qid Unknown - 09/03 Finasteride Hx Tablets 5mg 1 po qd Unknown - 06/05 Famotidine Hx Tablets 20mg 60tab bid Unknown / s - 06/05 Multivitamins Hx Tablets 100.0 1 po qd Unknown / 0tabs - 06/05 Lovaza Hx Capsules 1gm 4x daily Unknown / - 09/03 Proscar Hx Tablets 5mg 30tab 1 po qd Shallish, s MD Shawn Clobetasol Hx Gel 0.05% apply Unknown Propionate topically as needed Cyclobenzaprine Hx Tablets 10mg 30tab one po tid Unknown HCL / s prn spasm - 06/05 Tylenol/Codeine #3 Hx Tablets 300-30mg 20tab 1-2 po q Unknown / s 4-6 hr prn - pain 06/05 Calcipotriene Hx Cream 0.005% Unknown / Metoprolol Hx Tablets 100mg 1 by mouth Unknown Succinate ER /0000 ER 24HR every day in the morning along with a 50mg tablet Fish Oil Hx Capsules 1200mg once a day Unknown / DR Requip Hx Tablets 270mg take one Unknown / tablet by mouth in the am and 2 in the pm Amlactin Hx Lotion 12% apply Unknown /0000 daily Vitamin D Hx Unknown /0000 - 11/06 [facility] [place] Aspirin Hx Tablets 81mg Unknown /0000 DR - 11/06 Penicillin Hx Unknown /0000 Medications Administered in Office Medication Date Status Form Strength Qnty SIG Indications Ordering Provider Depomedrol Administered Injection Dirk Blayne, 40MG 017 M.D. Depomedrol Administered Injection Stoddard, Lien, 80MG 010 PA Vital Signs Date Vital Result Comment 12/25/2017 Height 69 inches 5'9" Weight 187.00 lb Heart Rate 60 /min BP Systolic Sitting 122 mmHg BP Diastolic Sitting 72 mmHg Respiratory Rate 18 /min Body Temperature 98.1 F BMI (Body Mass Index) 27.6 kg/m2 12/14/2017 Height 69 inches 5'9" Weight 187.00 lb Heart Rate 56 /min BP Systolic 124 mmHg BP Diastolic 70 mmHg BMI (Body Mass Index) 27.6 kg/m2 11/23/2017 Height 69 inches 5'9" Weight 195.00 lb Heart Rate 74 /min Respiratory Rate 16 /min Pain Level 3 BMI (Body Mass Index) 28.8 kg/m2 11/13/2017 Heart Rate 72 /min BP Systolic 136 mmHg BP Diastolic 80 mmHg Respiratory Rate 20 /min Body Temperature 98.3 F 11/07/2017 Height 69 inches 5'9" Weight 195.00 lb Heart Rate 72 /min BP Systolic 140 mmHg BP Diastolic 80 mmHg BMI (Body Mass Index) 28.8 kg/m2 09/25/2017 Heart Rate 66 /min BP Systolic [...] Procedures Date CPT Code Description Status 10/04/2016 54469 Inject/Drain Joint/Bursa Major W/O US Completed 08/02/2016 31452 ECHO Transthoracic, Real-Time 2D With Doppler And Color Completed Flow 06/14/2016 38658 Holter Monitor Review (24 hr)dr review & interp only Completed 06/14/2016 52419 EKG Tracing & Interpretation Completed 06/13/2016 17610 Holter Monitor Review (24 hr)dr review & interp only Completed 06/13/2016 11628 ECG Monitor/Recording W/Visual Superimposition Scanning Completed 06/12/2016 61492 ECG Monitor/Recording W/Visual Superimposition Scanning Completed 01/14/2015 95703 Removal Devitalization Tissue Wound Less Than Equal 20 Completed Square CM 01/05/2015 05272 Removal Devitalization Tissue Wound Less Than Equal 20 Completed Square CM 12/24/2014 89305 Removal Devitalization Tissue Wound Less Than Equal 20 Completed Square CM 12/24/2014 23001 Removal Devitalized Tissue Wound Greater Than 20 Square Completed CM 12/03/2014 70830 Carpal Tunnel Release Completed 10/23/2014 35860 ECHO Transthorasic Realtime 2D W Doppler & Color Flow Completed Hosp 10/24/2013 09330 Nerve Conduction 07-08 Studies Completed 01/29/2013 23956 EKG Tracing & Interpretation Completed 01/21/2013 19266 ECHO Transthoracic, Real-Time 2D With Doppler And Color Completed Flow 06/07/2012 34205 EKG Tracing & Interpretation Completed 09/04/2011 64552 ECHO Transthorasic Realtime 2D W Doppler & Color Flow Completed Hosp 09/04/2011 99323 Pulse Wave/Continuous-Interp.RPT Completed 09/04/2011 57914 Color Flow Doppler/Interp & Reprt Completed 08/25/2011 75227 EKG Tracing & Interpretation Completed 09/14/2009 71053 EKG Tracing & Interpretation Completed 08/09/2009 24194 Xray Knee 3 Views Completed 08/09/2009 05977 Xray Knee 3 Views Completed 08/09/2009 70822 Inject/Drain Joint/Bursa Major W/O US Completed 08/09/2009 21808 Inject/Drain Joint/Bursa Major W/O US Completed 06/02/2009 12541 EKG Tracing & Interpretation Completed 05/07/2008 10167 Stress Test Completed 05/07/2008 44389 Stress Test Completed 05/07/2008 84519 ECHO/Stress Completed 05/07/2008 67845 ECHO/Stress Completed 05/07/2008 06901 ECHO Stress Test Incl Perf Contiuous ekg Monitoring Completed W/Phys Superv 05/01/2008 37678 Color Doppler Completed 05/01/2008 26049 Pulse Doppler & Continuous Wave Completed 05/01/2008 79636 Echocardiogram Completed 05/01/2008 58382 ECHO Transthoracic, Real-Time 2D With Doppler And Color Completed Flow 04/16/2008 98232 EKG Tracing & Interpretation Completed Encounters Type Date Location Provider CPT E/M Dx Office Visit 11/23/2017 [facility] Ban Mascorro M.D. 21511 M25.512 1:15p Of Jose S43.005D Office Visit 11/13/2017 9:15a [facility] Jh De La Cruz, 29522 K40.90 Of Industrial Photographer M.D. Office Visit 11/07/2017 10:45a [facility] Ban Mascorro M.D. 31223 S43.005A Of [facility] M25.512 W10.8xxA Office Visit 09/25/2017 10:00a [facility] [place] [address] K40.90 Of [facility] Office Visit 08/14/2017 2:15p [facility] [place] [address] K40.90 Of [facility] Office Visit 07/26/2017 1:15p [facility] Immanuel Marley, 28767 K40.90 Of [facility] [place] Office Visit 07/10/2017 1:30p [facility] [place] [address] K40.90 Of [facility] Office Visit 06/18/2017 1:15p [facility] Immanuel Marley, 79415 K40.90 Of [facility] [place] Office Visit 05/23/2017 9:00a [facility] [place] [address] K40.90 Of [facility] Office Visit 04/06/2017 10:00a [facility] [place] [address] K40.90 Of [facility] Office Visit 01/24/2017 11:00a [facility] [place] [address] K40.90 Of [facility] Office Visit 01/10/2017 9:00a [facility] [place] [address] K40.90 Of [facility] [employer] Office Visit 11/15/2016 9:15a [facility] Avery Cisneros M.D. 10218 M17.12 [facility] Office Visit 10/04/2016 10:15a [facility] Avery Cisneros M.D. 43380 M17.12 [facility] Office Visit 08/08/2016 4:00p [facility] Antonitaybjennifer Bejarano 53704 I49.1 Nicolette Rollins I10 I49.3 Office Visit 06/14/2016 2:20p [facility] Qutaybeh SIsa Rollins 55499 R00.2 Nicolette I10 I49.1 I49.3 I71.9 R00.1 Office Visit 06/29/2015 10:18a [facility] Brice Carranza, 62440 L97.212 AT [facility] I87.331 Office Visit 01/26/2015 9:22a [facility] Brice Carranza, 93844 I70.232 AT [facility] I83.012 E11.621 I89.0 Office Visit 01/21/2015 8:58a [facility] Brice Carranza, 55617 I70.232 AT [facility] I83.012 E11.621 Office Visit 12/24/2014 11:03a [facility] Brice Carranza, 27033 I83.012 AT [facility] I70.232 Office Visit 11/06/2014 11:40a [facility] Marian 33281 354.0 Of Jose Calix M.D. Office Visit 10/23/2014 12:35p [facility], 06294 780.2 [facility] Nicolette 401.9 585.3 272.4 Office Visit 05/12/2013 9:30a [facility] Brice Henning M.D. 91894 721.0 Of [facility] Office Visit 01/29/2013 10:00a [facility] Qutaybeh S. 20887 401.1 Nicolette Rollins 424.0 427.69 794.31 Office Visit 12/18/2012 2:30p [facility] Brice Henning M.D. 30930 721.0 Of [facility] Office Visit 06/07/2012 8:40a [facility] Qutaybeh S. 03113 401.1 Nicolette Rollins 782.3 794.31 780.50 Office Visit 09/25/2011 10:00a [facility] Nurse Visit 70551 401.1 Office Visit 09/11/2011 8:30a [facility] Consuelo Turner N.Mayela 41391 401.1 782.3 Office Visit 09/04/2011 1:30p [facility] Consuelo Turner N.PIsa 47820 401.1 Office Visit 08/25/2011 2:00p [facility] Antonitaybeh Darci Rollins 68538 401.1 M.DIsa 780.50 782.3 794.31 Office Visit 08/24/2010 9:00a [facility] Of Will Cope, 41262 721.3 [facility] M.DIsa 719.46 Office Visit 09/14/2009 11:20a [facility] Qutaybeh S. 62716 401.1 Nicolette Rollins Office Visit 08/09/2009 1:00p [facility] [address] 716.96 [facility] Office Visit 06/02/2009 8:40a [facility] Qutaybeh S. 42818 401.1 Nicolette Rollins 780.50 794.31 Office Visit 05/26/2008 8:20a [facility] Qutaybeh S. Maghaydah, 40110 401.1 M.DIsa 780.50 Office Visit 04/16/2008 3:40p [facility] Qutaybeh S. Maghaydah, 23167 401.0 M.DIsa 786.50 794.31 Plan of Care Future Appointment(s):01/07/2018 9:45 am - Ban Mascorro M.D. at [facility]01/10/2018 7:30 am - JAMES Doll at [facility]01/18/2018 11:00 am - Mahnaz Yepez NP at [facility]01/10/2018 7:30 am - Jh De La Cruz M.D. at [facility]12/25/2017 - Mahnaz Yepez NPK40.90 Unil inguinal hernia, w/o obst or gangr, not spcf as recurFollow up:yikdclS76.818 Encounter for other preprocedural examination
--- OUTSIDE RECORDS SUMMARY | 2018-01-14 12:30 | XMS REPORT ---
:1930 External Reference #:[id number] Author Organization [facility] Address [address] [place] [address] Phone [phone] Care Team Providers Name Role Phone Shawn Mosher MD Primary Care Physician Unavailable Payers Type Date Identification Numbers Payment Provider Subscriber Medicare Primary Policy Number: [id number] Medicare Parrish Sofia PayID: [id number] [address] [place] [address] [facility] Part B Effective: 1996 Policy Number: Medicare Parrish Sofia [id number] Expires: 2017 PayID: [id number] [address] [place] [address] Medig[employer] Part B Effective: Policy Number: DEMETRIA Sofia 2012 [id number] PayID: [id number] [address] [address] [facility] Part B Effective: Policy Number: BS Juliette Ling 2010 [id number] Kimberlyn Expires: 2012 PayID: [id number] [address] Problems Date Description Provider Status Onset: 08/25/2011 Benign essential hypertension Fortunato Ziegler M.D. Onset: 08/25/2011 Disturbance in sleep behavior Fortunato Ziegler M.D. Onset: 08/25/2011 Edema Fortunato Ziegler M.D. Onset: 08/25/2011 Electrocardiogram abnormal Fortunato Ziegler M.D. 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 Uloric Active Tablets 40mg 90tab po qd Unknown /0000 s Lasix Active Tablets 20mg 30tab 1 tab po Unknown / s qd Metoprolol Active Tablets 50mg take 1 tab Unknown Succinate ER / ER 24HR twice a day Pravastatin Sodium Active Tablets 10mg 90tab 1 po qd Unknown / s Levothyroxine Active Tablets 25mcg 90tab 1 po qd Unknown Sodium / s Multivitamin Men Active Tablets 1 by mouth Unknown / every day Finasteride Active Tablets 5mg 1 by mouth Unknown every day Ropinirole HCL Active Tablets 1mg take one Unknown tablet by mouth in the morning and 2 in the evening Chandler-3 & Vitamin Active Chewtabs 117-100mg daily Unknown D3 Gummi / -Unit Omeprazole Active Tablets 20mg [address] every day Fish Oil Active Capsules 1000mg 1 by mouth Unknown once a day Metoprolol 04/16 Hx Tablets 50mg 180ta 1 po bid Qutayb ER [facility] Avapro 04/16 Hx Tablets 150mg 90tab 1 po bid Qutayb s S. - [facility]02 M.D[facility] Hydrochlorothiazid 04/16 Hx Tablets 25mg 60tab 1 po qd [facility] Proscar 04/16 Hx Tablets 5mg 90tab 1 po qd Qutayb s S. - [facility] M.[facility] Fish Oil 04/16 Hx Capsules 1200mg 1 po Tri [facility] Requip 04/16 Hx Tablets 1mg 30tab 1 tablet Q[facility]ayb s [facility] a [facility] /2016 Clobetasol 04/16 Hx Cream 0.05% 30G topically Qutaybeh Propionate qd S. - [facility] 08[facility] M.D[facility] /2011 dx: dermatitis Norvasc 04/16 Hx Tablets 5mg 90tab 1 po qd Qutayb s S. - Ria, 09/14 M.D. Avapro Hx Tablets 150mg 1 po qd Unknown / - 06/13 Carac Hx Cream 0.5% as Unknown /0000 directed - 08/24 Fish Oil Hx Capsules 1200 one po qid Unknown - 09/03 Finasteride Hx Tablets 5mg 1 po qd Unknown / - 06/05 Famotidine Hx Tablets 20mg 60tab bid Unknown / s - 06/05 Multivitamins Hx Tablets 100.0 1 po qd Unknown / 0tabs - 06/05 Lovaza Hx Capsules 1gm 4x daily Unknown / - 09/03 Proscar Hx Tablets 5mg 30tab 1 po qd Shallish, / s MD Shawn Clobetasol Hx Gel 0.05% apply Unknown Propionate / topically as needed Cyclobenzaprine Hx Tablets 10mg [...] Requip Hx Tablets 270mg take one Unknown /0000 tablet by mouth in the am and 2 in the pm Amlactin Hx Lotion 12% apply Unknown /0000 daily Vitamin D 00 Hx Unknown /0000 - 11/06 [facility] [...] Procedures Date CPT Code Description Status 10/04/2016 05078 Inject/Drain Joint/Bursa Major W/O US Completed 08/02/2016 29814 ECHO Transthoracic, Real-Time 2D With Doppler And Color Completed Flow 06/14/2016 28585 Holter Monitor Review (24 hr)dr review & interp only Completed 06/14/2016 59548 EKG Tracing & Interpretation Completed 06/13/2016 14285 Holter Monitor Review (24 hr)dr review & interp only Completed 06/13/2016 02791 ECG Monitor/Recording W/Visual Superimposition Scanning Completed 06/12/2016 79014 ECG Monitor/Recording W/Visual Superimposition Scanning Completed 01/14/2015 28953 Removal Devitalization Tissue Wound Less Than Equal 20 Completed Square CM 01/05/2015 80352 Removal Devitalization Tissue Wound Less Than Equal 20 Completed Square CM 12/24/2014 36583 Removal Devitalization Tissue Wound Less Than Equal 20 Completed Square CM 12/24/2014 32090 Removal Devitalized Tissue Wound Greater Than 20 Square Completed 12/03/2014 09493 Carpal Tunnel Release Completed 10/23/2014 40693 ECHO Transthorasic Realtime 2D W Doppler & Color Flow Completed Hosp 10/24/2013 12361 Nerve Conduction 07-08 Studies Completed 01/29/2013 39976 EKG Tracing & Interpretation Completed 01/21/2013 86592 ECHO Transthoracic, Real-Time 2D With Doppler And Color Completed Flow 06/07/2012 46916 EKG Tracing & Interpretation Completed 09/04/2011 06031 ECHO Transthorasic Realtime 2D W Doppler & Color Flow Completed Hosp 09/04/2011 88270 Pulse Wave/Continuous-Interp.RPT Completed 09/04/2011 78969 Color Flow Doppler/Interp & Reprt Completed 08/25/2011 09759 EKG Tracing & Interpretation Completed 09/14/2009 30898 EKG Tracing & Interpretation Completed 08/09/2009 62823 Xray Knee 3 Views Completed 08/09/2009 20994 Xray Knee 3 Views Completed 08/09/2009 34173 Inject/Drain Joint/Bursa Major W/O US Completed 08/09/2009 68602 Inject/Drain Joint/Bursa Major W/O US Completed 06/02/2009 18845 EKG Tracing & Interpretation Completed 05/07/2008 51851 Stress Test Completed 05/07/2008 55491 Stress Test Completed 05/07/2008 41504 ECHO/Stress Completed 05/07/2008 77308 ECHO/Stress Completed 05/07/2008 92018 ECHO Stress Test Incl Perf Contiuous ekg Monitoring Completed W/Phys Superv 05/01/2008 98780 Color Doppler Completed 05/01/2008 96704 Pulse Doppler & Continuous Wave Completed 05/01/2008 98334 Echocardiogram Completed 05/01/2008 45632 ECHO Transthoracic, Real-Time 2D With Doppler And Color Completed Flow 04/16/2008 17956 EKG Tracing & Interpretation Completed Encounters Type Date Location Provider CPT E/M Dx Office Visit 11/23/2017 [facility] Ban Mascorro M.D. 29110 M25.512 1:15p [facility] S43.005D Office Visit 11/13/2017 9:15a [facility] Jh De La Cruz, 33636 K40.90 Of Property Accountant M.D. Office Visit 11/07/2017 10:45a [facility] Ban Mascorro M.D. 56216 S43.005A Of [facility] M25.512 W10.8xxA Office Visit 09/25/2017 10:00a [facility] [place] [address] K40.90 Of Property [facility] Office Visit 08/14/2017 2:15p [facility] [place] [address] K40.90 Of Property [facility] Office Visit 07/26/2017 1:15p [facility] Immanuel Marley, 85212 K40.90 Of [facility] Office Visit 07/10/2017 1:30p [facility] [place] [address] K40.90 Of Property [facility]ant Office Visit 06/18/2017 1:15p [facility] Immanuel Marley, 10072 K40.90 Of [facility] Office Visit 05/23/2017 9:00a [facility] [place] [address] K40.90 Of Property Accountant Office Visit 04/06/2017 10:00a [facility] [place] [address] K40.90 Of Property Accountant Office Visit 01/24/2017 11:00a [facility] [place] [address] K40.90 Of Property Accountant Office Visit 01/10/2017 9:00a [facility] [place] [address] K40.90 Of Property Accountant Office Visit 11/15/2016 9:15a [facility] Avery Cisneros M.D. 99210 M17.12 [facility] Office Visit 10/04/2016 10:15a [facility] Avery Cisneros M.D. 91362 M17.12 [facility] Office Visit 08/08/2016 4:00p [facility] July SIsa 40814 I49.1 Nicolette Rollins I10 I49.3 Office Visit 06/14/2016 2:20p [facility] Qutaybeh S. Ria, 27302 R00.2 M.D. I10 I49.1 I49.3 I71.9 R00.1 Office Visit 06/29/2015 10:18a [facility] Brice Carranza, 65858 L97.212 AT [facility] I87.331 Office Visit 01/26/2015 9:22a [facility] Brice Carranza, 28607 I70.232 AT [facility] I83.012 E11.621 I89.0 Office Visit 01/21/2015 8:58a [facility] Brice Carranza, 46865 I70.232 AT [facility] I83.012 E11.621 Office Visit 12/24/2014 11:03a [facility] Brice LingIsa Carranza, 43088 I83.012 AT [facility] I70.232 Office Visit 11/06/2014 11:40a [facility] Marian 43532 354.0 Of Jose Calix M.D. Office Visit 10/23/2014 12:35p [facility] [place], [address] 780.2 Ass, [facility] Nicolette 401.9 585.3 272.4 Office Visit 05/12/2013 9:30a [facility] Brice Henning M.D. 64391 721.0 Of [facility] Office Visit 01/29/2013 10:00a [facility] [place] S. 57039 401.1 Nicolette Rollins 424.0 427.69 794.31 Office Visit 12/18/2012 2:30p [facility] Brice Henning M.D. 27194 721.0 Of [facility] Office Visit 06/07/2012 8:40a [facility] Antonitaybjennifer S. 75573 401.1 Nicolette Rollins 782.3 794.31 780.50 Office Visit 09/25/2011 10:00a [facility] Nurse Visit 16703 401.1 Office Visit 09/11/2011 8:30a [facility] Consuelo Turner, N.PIsa 34104 401.1 782.3 Office Visit 09/04/2011 1:30p [facility] Consuelo Yue, N.P. 58532 401.1 Office Visit 08/25/2011 2:00p [facility] Qutaybeh S. Maghaydah, 52099 401.1 M.D. 780.50 782.3 794.31 Office Visit 08/24/2010 9:00a [facility] Of Will SnyderIsa Cope, 49872 721.3 [facility] M.DIsa 719.46 Office Visit 09/14/2009 11:20a [facility] Qutaybeh S. 29497 401.1 Nicolette Rollins Office Visit 08/09/2009 1:00p [place] [address] 716.96 [facility] Office Visit 06/02/2009 8:40a [facility] Qutaybeh S. 76853 401.1 Nicolette Rollins 780.50 794.31 Office Visit 05/26/2008 8:20a [facility] Qutaybeh S. Maghaydah, 92951 401.1 M.D. 780.50 Office Visit 04/16/2008 3:40p [facility] Qutaybeh S. Maghaydah, 25289 401.0 M.DIsa 786.50 794.31 Plan of Care Future Appointment(s):01/07/2018 9:45 am - Ban Mascorro M.D. at [facility]01/10/2018 7:30 am - DAVY Doll at [facility]01/18/2018 11:00 am - Mahnaz Yepez NP at [facility]01/10/2018 7:30 am - Jh De La Cruz M.D. at [facility]12/25/2017 - Mahnaz Yepez NPK40.90 Unil inguinal hernia, w/o obst or gangr, not spcf as recurFollow up:vozddpE56.818 Encounter for other preprocedural examination
--- OUTSIDE RECORDS SUMMARY | 2018-01-14 12:30 | XMS REPORT ---
:1930 External Reference #:[id number] Author Organization [facility] Address [address] [place] [address] Phone [phone] Care Team Providers Name Role Phone Shawn Mosher MD Primary Care Physician Unavailable Payers Type Date Identification Numbers Payment Provider Subscriber Medicare Primary Policy Number: [id number] Medicare Parrish Sofia PayID: [id number] [address] [place] [address] [place] Part B Effective: 1996 Policy Number: Medicare Parrish Sofia [id number] Expires: 2017 PayID: [id number] [address] [place] [address] Medig[employer] Part B Effective: Policy Number: DEMETRIA Sofia 2012 [id number] PayID: [id number] [address] [address] [place] Part B Effective: Policy Number: BS Juliette Ling 2010 [id number] Fernando Expires: 2012 PayID: [id number] [address] Problems Date Description Provider Status Onset: 08/25/2011 [...] due to cirrhosis Years) Mother due to NH () Mother due to Stroke () Siblings 2 sister - CAD, DM - at age 80's brother - alive, CAD/HTN Social History Type Date Description Comments Marital Status 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 Avapro 04/16 Hx Tablets 150mg 90tab 1 po bid [facility] Hydrochlorothiazid 04/16 Hx Tablets 25mg 60tab 1 po qd [facility]. Proscar 04/16 Hx Tablets 5mg 90tab 1 po qd [facility] M.[facility] Fish Oil 04/16 Hx Capsules 1200mg 1 po Tri [facility] Requip 04/16 Hx Tablets 1mg 30tab 1 tablet Qutayb s twice a S. - [facility] M.D. /2016 Clobetasol 04/16 Hx Cream 0.05% 30G topically Qutaybeh Propionate [facility]d [facility] 08[facility] M.D. /2011 dx: dermatitis Norvasc [...] PA Vital Signs Date Vital Result Comment 01/14/2018 Heart Rate 62 /min Respiratory Rate 18 /min Body Temperature 97.3 F 12/25/2017 Height 69 inches 5'9" Weight 187.00 [...] BMI (Body Mass Index) 30.1 kg/m2 Results Test Date Test Result H/L Range Note Laboratory test 01/10/2018 Surgical Pathology SEE RESULT BELOW 1 finding CBC Auto Diff 12/25/2017 White Blood Count 5.7 10^3/uL 3.5-10.8 2 Red Blood Count 4.40 10^6/uL 4.00-5.40 2 Hemoglobin 13.0 g/dL Low 14.0-18.0 2 Hematocrit 38 % Low 42-52 2 Mean Corpuscular Volume 87 fL 80-94 2 Mean Corpuscular Hemoglobin 30 pg 27-31 2 Mean Corpuscular HGB Conc 34 g/dL 31-36 2 Red Cell Distribution Width 14 % 10.5-15 2 Platelet Count 247 10^3/uL 150-450 2 Mean Platelet Volume 9.1 um3 7.4-10.4 2 Abs Neutrophils 3.5 10^3/uL 1.5-7.7 2 Abs Lymphocytes 1.5 10^3/uL 1.0-4.8 2 Abs Monocytes 0.5 10^3/uL 0-0.8 2 Abs Eosinophils 0.1 10^3/uL 0-0.6 2 Abs Basophils 0.1 10^3/uL 0-0.2 2 Abs Nucleated RBC 0 10^3/uL 2 Granulocyte % 61.1 % 38-83 2 Lymphocyte % 26.0 % 25-47 2 Monocyte % 8.8 % High 0-7 2 Eosinophil % 2.6 % 0-6 2 Basophil % 1.5 % 0-2 2 Nucleated Red Blood Cells % 0 2 Basic Metabolic Panel 12/25/2017 Sodium 140 mmol/L 135-145 2 Potassium 4.3 mmol/L 3.5-5.0 2 Chloride 104 mmol/L 101-111 2 Co2 Carbon Dioxide 29 mmol/L 22-32 2 Anion Gap 7 mmol/L 2-11 2 Glucose 93 mg/dL 70-100 2 Blood Urea Nitrogen 22 mg/dL 6-24 2 Creatinine 1.38 mg/dL High 0.67-1.17 2 BUN/Creatinine Ratio 15.9 8-20 2 Calcium 9.4 mg/dL 8.6-10.3 2 Egfr Non- 48.9 >60 2 Egfr 59.1 >60 2, 3 1 SEE RESULT BELOW Name: FERNANDOPARRISH Lolis : [address]: Jh De La Cruz MD Acct: [id number] Unit: [id number] AGE: 87 Location: OR Re01/10/18 SEX: M Status: REG [facility] SPEC: [id number] LISSETH: 01/10/[address] [facility] [address]: Jh De La Cruz MD REQ: [id number] RECD: 01/10/18 STATUS: SOUT _ ORDERED: LEVEL 2 FINAL DIAGNOSIS Right inguinal hernia sac, excision: -- Benign fibromembranous tissue, compatible with hernia sac. PRE-OPERATIVE DIAGNOSIS Unilateral inguinal hernia without obstruction. GROSS DESCRIPTION The specimen is received in formalin labeled, Right Inguinal Hernia Sac, and consists of an 8.9 by up to 4.4 x 0.7 cm shaw-pink wrinkled saccular portion of fibromembranous tissue. The wall is focally thickened measuring up to 0.3 cm. Security Orderly sections, one cassette. Signed by and Reported on: Yulisa Perez MD 01/11/18 1456 END OF REPORT DEPARTMENT OF PATHOLOGY, [address] [place] [address] Coleman Henderson M.D. Director [facility] # [id number] 2 01/10 3 Because ethnic data is not always readily available, this report includes an eGFR for both -Americans and non- Americans. The National Kidney Disease Education Program (NKDEP) does not endorse the use of the MDRD equation for patients that are not between the ages of 18 and 70, are , have extremes of body size, muscle mass, or nutritional status, or are non- or non-. According to the National Kidney Foundation, irrespective of diagnosis, the stage of the disease is based on the level of kidney function: Stage Description GFR(mL/min/1.73 m(2)) 1 Kidney damage with normal or decreased GFR 90 2 Kidney damage with mild decrease in GFR 60-89 3 Moderate decrease in GFR 30-59 4 Severe decrease in GFR 15-29 5 Kidney failure <15 (or dialysis) Procedures Date CPT Code Description Status 10/04/2016 21514 Inject/Drain Joint/Bursa Major W/O US Completed 08/02/2016 59285 ECHO Transthoracic, Real-Time 2D With Doppler And Color Completed Flow 06/14/2016 15531 Holter Monitor Review (24 hr)dr blue & dianap only Completed 06/14/2016 20082 EKG Tracing & Interpretation Completed 06/13/2016 26081 Holter Monitor Review (24 hr)dr blue & tena only Completed 06/13/2016 27201 ECG Monitor/Recording W/Visual Superimposition Scanning Completed 06/12/2016 40891 ECG Monitor/Recording W/Visual Superimposition Scanning Completed 01/14/2015 40198 Removal Devitalization Tissue Wound Less Than Equal 20 Completed Square CM 01/05/2015 32057 Removal Devitalization Tissue Wound Less Than Equal 20 Completed Square CM 12/24/2014 99632 Removal Devitalization Tissue Wound Less Than Equal 20 Completed Square CM 12/24/2014 65949 Removal Devitalized Tissue Wound Greater Than 20 Square Completed CM 12/03/2014 86103 Carpal Tunnel Release Completed 10/23/2014 67019 ECHO Transthorasic Realtime 2D W Doppler & Color Flow Completed Hosp 10/24/2013 06927 Nerve Conduction 07-08 Studies Completed 01/29/2013 11930 EKG Tracing & Interpretation Completed 01/21/2013 14335 ECHO Transthoracic, Real-Time 2D With Doppler And Color Completed Flow 06/07/2012 44347 EKG Tracing & Interpretation Completed 09/04/2011 10997 ECHO Transthorasic Realtime 2D W Doppler & Color Flow Completed Hosp 09/04/2011 73417 Pulse Wave/Continuous-Interp.RPT Completed 09/04/2011 91741 Color Flow Doppler/Interp & Reprt Completed 08/25/2011 04165 EKG Tracing & Interpretation Completed 09/14/2009 33378 EKG Tracing & Interpretation Completed 08/09/2009 74445 Xray Knee 3 Views Completed 08/09/2009 86223 Xray Knee 3 Views Completed 08/09/2009 17429 Inject/Drain Joint/Bursa Major W/O US Completed 08/09/200992717 Inject/Drain Joint/Bursa Major W/O US Completed 06/02/2009 38965 EKG Tracing & Interpretation Completed 05/07/2008 03124 Stress Test Completed 05/07/2008 07801 Stress Test Completed 05/07/2008 90589 ECHO/Stress Completed 05/07/2008 75271 ECHO/Stress Completed 05/07/2008 32935 ECHO Stress Test Incl Perf Contiuous ekg Monitoring Completed W/Phys Superv 05/01/2008 13377 Color Doppler Completed 05/01/2008 55082 Pulse Doppler & Continuous Wave Completed 05/01/2008 96167 Echocardiogram Completed 05/01/2008 20460 ECHO Transthoracic, Real-Time 2D With Doppler And Color Completed Flow 04/16/2008 90977 EKG Tracing & Interpretation Completed Encounters Type Date Location Provider CPT E/M Dx Office Visit 12/14/2017 [facility] Ban Mascorro M.D. 54281 S43.005D 1:15p Of Jose M25.512 W19.xxxD Office Visit 11/23/2017 1:15p [facility] Of Ban Mascorro M.D. 50870 M25.512 Jose S43.005D Office Visit 11/13/2017 9:15a [facility] Jh De La Cruz, 87092 K40.90 Of Alverto Will Office Visit 11/07/2017 10:45a [facility] Ban Mascorro M.D. 62830 S43.005A Of [facility] M25.512 W10.8xxA Office Visit 09/25/2017 10:00a [facility] [place] [address] K40.90 Of [facility] Office Visit 08/14/2017 2:15p [facility] [place] [address] K40.90 Of [facility] Office Visit 07/26/2017 1:15p [facility] Immanuel Marley 44490 K40.90 Of [facility] [place] Office Visit 07/10/2017 1:30p [facility] [place] [address] K40.90 Of Equipment Engineering Technician Office Visit 06/18/2017 1:15p [facility] Immanuel Marley 31655 K40.90 Of [facility] [place] Office Visit 05/23/2017 9:00a [facility] [place] [address] K40.90 Of [facility] Office Visit 04/06/2017 10:00a [facility] [place] [address] K40.90 Of [facility] Office Visit 01/24/2017 11:00a [facility] [place] [address] K40.90 Of [facility] Office Visit 01/10/2017 9:00a [facility] [place] [address] K40.90 Of [facility] Office Visit 11/15/2016 9:15a [facility] Avery Cisneros M.D. 49760 M17.12 Of [facility] Office Visit 10/04/2016 10:15a [facility] Avery Cisneros M.D. 18686 M17.12 Of [facility] Office Visit 08/08/2016 4:00p [facility] Qutaybeh SIsa 08056 I49.1 Nicolette Rollins I10 I49.3 Office Visit 06/14/2016 2:20p [facility] Qutaybeh SIsa Rollins 67216 R00.2 Nicolette I10 I49.1 I49.3 I71.9 R00.1 Office Visit 06/29/2015 10:18a [facility] [place] Brice Carranza, 44870 L97.212 AT [facility] [place] Nicolette I87.331 Office Visit 01/26/2015 9:22a [facility] Brice Carranza, 19927 I70.232 AT [facility] I83.012 E11.621 I89.0 Office Visit 01/21/2015 8:58a [facility] Brice Carranza, 41735 I70.232 [facility] I83.012 E11.621 Office Visit 12/24/2014 11:03a [facility] Brice Carranza, 86970 I83.012 AT [facility] I70.232 Office Visit 11/06/2014 11:40a [facility] Marian 39730 354.0 Of Jose Calix M.D. Office Visit 10/23/2014 12:35p [facility], [address]296 780.2 [facility], [facility]ists Nicolette 401.9 585.3 272.4 Office Visit 05/12/2013 9:30a [facility] Brice Henning M.D. 43816 721.0 Of [facility] Office Visit 01/29/2013 10:00a [facility] Qutaybeh S. 40352 401.1 Nicolette Rollins 424.0 427.69 794.31 Office Visit 12/18/2012 2:30p [facility] Brice Henning M.D. 13103 721.0 Of [facility] Office Visit 06/07/2012 8:40a [facility] Qutaybeh S. 03830 401.1 Nicolette Rollins 782.3 794.31 780.50 Office Visit 09/25/2011 10:00a [facility] Nurse Visit 50211 401.1 Office Visit 09/11/2011 8:30a [facility] Consuelo Turner N.PIsa 96599 401.1 782.3 Office Visit 09/04/2011 1:30p [facility] Consuelo Turner N.P. 57862 401.1 Office Visit 08/25/2011 2:00p [facility] Qutaybeh S. Ria 15974 401.1 Nicolette 780.50 782.3 794.31 Office Visit 08/24/2010 9:00a [facility] Of Will Cope, 18984 721.3 [facility] M.DIsa 719.46 Office Visit 09/14/2009 11:20a [facility] Qutaybeh S. 15264 401.1 Nicolette Rollins Office Visit 08/09/2009 1:00p [place] [address] 716.96 Of [facility] Office Visit 06/02/2009 8:40a [facility] Qutaybeh S. 51358 401.1 Nicolette Rollins 780.50 794.31 Office Visit 05/26/2008 8:20a [facility] Qutaybeh SIsa Davidpeter, 22738 401.1 MKayli 780.50 Office Visit 04/16/2008 3:40p [facility] Antonitaybeh SIsa Davidpeter, 94476 401.0 M.DIsa 786.50 794.31 Plan of Care 01/14/2018 - Richard Rodriguez MD, FACSK40.90 Unil inguinal hernia, w/o obst or gangr, not spcf as recurFollow up:as scheduled.Recommendations:Wear an athletic supporter. When sitting or lying down use a rolled towel to elevate the scrotum. See [facility] for evaluation of urinary issues. Take Milk of Magnesia as directed on bottle forconstipation. Use Tylenol 650mg every 6 hours as needed for pain.N40.1 Benign prostatic hyperplasia with lower urinary tract sympReferral:Guille Laughlin MD, Urology
[2018-01-14 13:37] LABS: ABS Basophils 0 10^3/ul (0-0.2); ABS Eosinophils 0.1 10^3/ul (0-0.6); ABS Lymphocytes 0.9 10^3/ul (1.0-4.8); ABS Monocytes 0.5 10^3/ul (0-0.8); ABS Neutrophils 4.5 10^3/ul (1.5-7.7); ABS Nucleated RBC 0 10^3/ul; Eosinophil % 2.3 % (0-6); Hematocrit 38 % (42-52); Hemoglobin 12.8 g/dl (14.0-18.0); Lymphocyte % 15.1 % (25-47); Mean Corpuscular HGB Conc 34 g/dl (31-36); Mean Corpuscular Hemoglobin 29 pg (27-31); Mean Corpuscular Volume 87 fL (80-94); Mean Platelet Volume 8.8 um3 (7.4-10.4); Nucleated Red Blood Cells % 0.1; Platelet Count 228 10^3/ul (150-450); Red Blood Count 4.36 10^6/ul (4.00-5.40); Red Cell Distribution Width 14 % (10.5-15); White Blood Count 6.1 10^3/ul (3.5-10.8)
[2018-01-14 13:55] LABS: EGFR Non-African American 56.9 (>60)
[2018-01-14 14:10] LABS: INR 1.08 (0.77-1.02)
[2018-01-14 14:59] LABS: Urine Appearance Clear; Urine Blood Negative (Negative); Urine Color Yellow; Urine Ketones Negative (Negative); Urine Protein 1+(30 mg/dL) (Negative); Urine Red Blood Cell Trace(0-2/hpf) (Absent); Urine Specific Gravity 1.011 (1.010-1.030); Urine Urobilinogen Negative (Negative); Urine White Blood Cell Absent (Absent)
[2018-01-14] MEDS ORDERED: Iodixanol* (CONTRAST) 320 MG/ML 100 ML SDV IV ONE (15:42)
--- NOTE | 2018-01-14 18:05 | RAD ---
INDICATION: Lower abdominal pain. Testicular swelling. Post hernia surgery. Constipation. COMPARISON: No relevant prior exams available on the [facility] PACS for comparison. TECHNIQUE: Multidetector CT images were obtained from the lung bases to the ischial tuberosities with 100 mL Visipaque 320 IV and oral contrast. Multiplanar reformation. REPORT: VISUALIZED INFERIOR THORAX: Upper normal heart size. Trace RIGHT and small LEFT dependent pleural effusions with proportional basilar atelectasis. Small hiatal hernia. LIVER / GALLBLADDER / PANCREAS / SPLEEN: Unremarkable liver, gallbladder, pancreas. 15 cm cephalocaudal enlarged spleen without focal lesions. ALIMENTARY TRACT: Aside from the small hiatal hernia the upper GI is unremarkable. No CT abnormality of the small bowel loops, infra cecal appendix, or colon. Enteric contrast extends to the descending colon. Small volume of free fluid at the dependent pelvis. Negative for free intraperitoneal air. MESENTERIC: Unremarkable. ADRENAL / GENITOURINARY: Normal adrenal glands. Symmetric nephrograms and pyelograms. Negative for obstructive uropathy. Bilateral renal cortical cysts. No suspicious focal renal lesions evident. Unremarkable nondilated ureters and moderately distended urinary bladder. Symmetric seminal vesicles. RETROPERITONEAL: Postsurgical change at the RIGHT groin corresponding with history of inguinal hernia repair. There is edematous thickening of the RIGHT groin abdominal wall musculature with associated soft tissue gas including extension through retroperitoneum along the RIGHT pelvic sidewall. There is mixed soft tissue density and fluid density enlargement of the RIGHT inguinal canal extending to the caudal aspect of the udwfz-[id number] above the scrotum with the RIGHT inguinal canal measuring up to 3.0 x 3.6 cm cross-sectional diameter compared with 1.9 x 1.9 cm on the contralateral side. VASCULAR: Mild atherosclerotic plaque of normal diameter abdominal aorta and iliac arteries. Physiologic distention of the IVC. BONES: Negative for suspicious osseous lesions. 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 SOFT TISSUE: 4 cm maximum dimension retroareolar mass at the LEFT breast. IMPRESSION: #. Trace RIGHT and small LEFT dependent pleural effusions with proportional basilar atelectasis. #. Splenomegaly. #. Small volume of ascites at the dependent pelvis. No loculated peritoneal abscess collection evident. Negative for free air. #. Postsurgical change at the RIGHT groin corresponding with history of inguinal hernia repair. There is edematous thickening of the RIGHT groin abdominal wall musculature with associated soft tissue gas including extension through retroperitoneum along the RIGHT pelvic sidewall. There is mixed soft tissue density and fluid density enlargement of the RIGHT inguinal canal extending to the caudal aspect of the [id number]-[id number] above the scrotum with the RIGHT inguinal canal measuring up to 3.0 x 3.6 cm cross-sectional diameter compared with 1.9 x 1.9 cm on the contralateral side. Correlate with clinical assessment for potential cellulitis at the surgical bed. #. 4 cm maximum dimension retroareolar mass at the LEFT breast warranting clinical correlation and potential nonemergent further imaging assessment with mammography and ultrasound.
--- NOTE | 2018-01-14 18:47 | ED ---
Abdominal Pain/Male - HPI Summary HPI Summary: Patient is a 87 y/o M w/ c/o diffuse abdominal pain and swelling as well as difficulty urinating in the past few days. He had a hernia repair four days ago , patient was referred to ED by Dr. Rodriguez for Sx. He denies fever, chills, FLEMING , ear pain, sore throat, blurred vision, double vision, neck pain, CP, SOB, back pain, dysuria, hematuria, blood in the stool, edema, bruising, rashes, anxiety, and depression. On triage, pain is rated 6/10, standing and sitting aggravates pain, nothing is noted to alleviate. Home medications and allergies are reviewed. - History of Current Complaint Chief Complaint: EDUrogenitalProblems Stated Complaint: POST HERNIA COMPLICATIONS Hx Obtained From: Patient Onset/Duration: Lasting Days - few days, Still Present Timing: Constant, Lasting Days - few days Severity Currently: Moderate - 6/10 Pain Intensity: 6 Pain Scale Used: 0-10 Numeric - 6/10 Location: Diffuse Aggravating Factor(s): Other: - standing and sitting Alleviating Factor(s): Nothing Associated Signs And Symptoms: Positive: Other - denies fever, FLEMING, ear pain, sore throat, blurred vision, double vision, neck pain, SOB, dysuria, hematuria, edema, bruising, rashes, anxiety, and depression. Negative: Fever, Chest Pain, Back Pain, Blood in Stool - Allergies/Home Medications Allergies/Adverse Reactions: Allergies Allergy/AdvReac Type Severity Reaction Status Date / Time No Known Allergies Allergy Verified 01/10/18 07:03 Home Medications: Home Medications Aspirin EC TAB* [Ecotrin EC Low Dose 81 MG*] 81 mg PO DAILY 01/14/18 [History Confirmed 01/14/18] Metoprolol Succinate XL TAB* [Toprol XL TAB*] 50 mg PO BID 01/14/18 [History Confirmed 01/14/18] Multivitamin [Men's Multi-Vitamin] 1 tab PO DAILY 01/14/18 [History Confirmed ] Buchtel-3 Fatty Acids (Nf) [Fish Oil (NF)] 1,000 mg PO DAILY 01/14/18 [History Confirmed 01/14/18] Buchtel-3S/Dha/Epa/Fish Oil [Buchtel-3 Gummies] 1 tab.chew PO DAILY 01/14/18 [ History Confirmed 01/14/18] rOPINIRole TAB* [Requip TAB*] 1 mg PO QAM 01/14/18 [History Confirmed 01/14/18] rOPINIRole TAB* [Requip TAB*] 2 mg PO QPM 01/14/18 [History Confirmed 01/14/18] PMH/Surg Hx/FS Hx/Imm Hx Endocrine/Hematology History: Reports: Hx Thyroid Disease - HYPOTHYROID, Other Endocrine/Hematological Disorders - Hypothyroidism Denies: Hx Diabetes Cardiovascular History: Reports: Hx Hypertension - ON MEDICATION FOR, Hx Peripheral Vascular Disease - PER DR. WOOD NOTE, Other Cardiovascular Problems/Disorders - Chronic BLE edema//SAW DR. WOOD Denies: Hx Pacemaker/ICD Comment Only: Hx Coronary Artery Disease - ON MEDICATION FOR CHOLESTEROL Respiratory History: Reports: Hx Sleep Apnea, Other Respiratory Problems/ Disorders - SLEEP ISSUES - NARCOLEPSY Denies: Hx Asthma GI History: Reports: Hx Gastroesophageal Reflux Disease - ON MEDICATION FOR, Hx Hiatal Hernia History: Reports: Hx Benign Prostatic Hyperplasia, Other Problems/ Disorders - ENLARGE PROSTATE//CHRONIC RENAL INSUFFICIENCY PER DR. 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 2014 RIGHT CARPAL TUNNEL RELEASE, [facility], PRECANCEROUS GROWTHS REMOVED FROM SCALP, vein sx on rt leg july 2015 Hx Anesthesia Reactions: No Infectious Disease History: No Infectious Disease History: Denies: Hx Clostridium Difficile, Hx Hepatitis, Hx Human Immunodeficiency Virus (HIV), Hx of Known/Suspected MRSA, Hx Shingles, Hx Tuberculosis, Hx Known/ Suspected VRE, Hx Known/Suspected VRSA, History Other Infectious Disease, Traveled Outside the [place] in Last 30 Days - Family History Known Family History: Positive: Hypertension - Social History Alcohol Use: Occasionally Alcohol Amount: ONCE A WEEK Substance Use Type: Reports: None Smoking Status (MU): Never Smoked Tobacco Review of Systems Negative: Fever, Chills Positive: Other - NEGATIVE: double vision . Negative: Blurred Vision Negative: Sore Throat, Ear Ache Negative: Chest Pain Negative: Shortness Of Breath Positive: Abdominal Pain - with abdominal swelling Positive: other - POSITIVE: difficulty urinating NEGATIVE: blood in stool . Negative: dysuria, hematuria Positive: Other - NEGATIVE: back/neck pain . Negative: Edema Negative: Rash, Bruising Negative: Headache Negative: Anxious, Depressed All Other Systems Reviewed And Are Negative: No Physical Exam - Summary Physical Exam Summary: Appearance: Alert, conversive, nontoxic appearing Skin: Warm, dry, no mottling, no rashes, no contusions HEENT: EOMI, PERRL, moist mucous membranes Neck: No masses on the neck, supple Respiratory: Clear to auscultation, breath sounds present, no rales, no rhonchi , no wheezes Cardiovascular: RRR, pulses are symmetrical in both lower and upper extremities Abdomen: soft, RLQ incision was CDI, diffuse lower abdominal tenderness Genital Exam: scrotum was enlarged, ecchymosis to inferior aspect Bowel Sounds: Present Musculoskeletal: No CVA tenderness, no obvious deformity, moving all extremities in a grossly normal manner Neurological: A&Ox3, CN II-XII Intact, moving all extremities symmetrically Psychiatric: Normal affect and mood Triage Information Reviewed: Yes Vital Signs On Initial Exam: Initial Vitals Temp Pulse Resp BP Pulse Ox 97.0 F 78 18 166/76 95 01/14/18 12:07 01/14/18 12:07 01/14/18 12:07 01/14/18 12:07 01/14/18 12:07 Vital Signs Reviewed: Yes Diagnostics - Vital Signs Vital Signs Temp Pulse Resp BP Pulse Ox 01/14/18 18:07 82 20 188/87 96 01/14/18 12:07 97.0 F 78 18 166/76 95 - Laboratory Lab Results: Lab Results 01/14/18 01/14/18 01/14/18 Range/Units 13:22 13:22 13:22 WBC 6.1 (3.5-10.8) 10^3/ul RBC 4.36 (4.00-5.40) 10^6/ul Hgb 12.8 L (14.0-18.0) g/dl Hct 38 L (42-52) % MCV 87 (80-94) fL MCH 29 (27-31) pg MCHC 34 (31-36) g/dl RDW 14 (10.5-15) % Plt Count 228 (150-450) 10^3/ul MPV 8.8 (7.4-10.4) um3 Neut % (Auto) 73.8 (38-83) % Lymph % (Auto) 15.1 L (25-47) % [place] % (Auto) 8.3 H (0-7) % Eos % (Auto) 2.3 (0-6) % Baso % (Auto) 0.5 (0-2) % Absolute Neuts (auto) 4.5 (1.5-7.7) 10^3/ul Absolute Lymphs (auto) 0.9 L (1.0-4.8) 10^3/ul Absolute Monos (auto) 0.5 (0-0.8) 10^3/ul Absolute Eos (auto) 0.1 (0-0.6) 10^3/ul Absolute Basos (auto) 0 (0-0.2) 10^3/ul Absolute Nucleated RBC 0 10^3/ul Nucleated RBC % 0.1 INR (Anticoag Therapy) 1.08 H (0.77-1.02) APTT 32.0 (26.0-36.3) seconds Sodium 137 (135-145) mmol/L Potassium 4.2 (3.5-5.0) mmol/L Chloride 103 (101-111) mmol/L Carbon Dioxide 27 (22-32) mmol/L Anion Gap 7 (2-11) mmol/L BUN 16 (6-24) mg/dL Creatinine 1.21 H (0.67-1.17) mg/dL Est GFR ( Amer) 68.8 (>60) Est GFR (Non-Af Amer) 56.9 (>60) BUN/Creatinine Ratio 13.2 (8-20) Glucose 98 (70-100) mg/dL Calcium 9.2 (8.6-10.3) mg/dL Total Bilirubin 1.50 H (0.2-1.0) mg/dL AST 25 (13-39) U/L ALT 16 (7-52) U/L Alkaline Phosphatase 113 H (34-104) U/L Troponin I 0.00 (<0.04) ng/mL Total Protein 7.0 (6.4-8.9) g/dL Albumin 3.5 (3.2-5.2) g/dL Globulin 3.5 (2-4) g/dL Albumin/Globulin Ratio 1.0 (1-3) Lipase < 10 L (11.0-82.0) U/L Urine Color Urine Appearance Urine pH (5-9) Ur Specific [place] (1.010-1.030) Urine Protein (Negative) Urine Ketones (Negative) Urine Blood (Negative) Urine Nitrate (Negative) Urine Bilirubin (Negative) Urine Urobilinogen (Negative) Ur Leukocyte Esterase (Negative) Urine WBC (Auto) (Absent) Urine RBC (Auto) (Absent) Urine Bacteria (Absent) Urine Glucose (Negative) 01/14/18 Range/Units 14:37 WBC (3.5-10.8) 10^3/ul RBC (4.00-5.40) 10^6/ul Hgb (14.0-18.0) g/dl Hct (42-52) % MCV (80-94) fL MCH (27-31) pg MCHC (31-36) g/dl RDW (10.5-15) % Plt Count (150-450) 10^3/ul MPV (7.4-10.4) um3 Neut % (Auto) (38-83) % Lymph % (Auto) (25-47) % [place] % (Auto) (0-7) % Eos % (Auto) (0-6) % Baso % (Auto) (0-2) % Absolute Neuts (auto) (1.5-7.7) 10^3/ul Absolute Lymphs (auto) (1.0-4.8) 10^3/ul Absolute Monos (auto) (0-0.8) 10^3/ul Absolute Eos (auto) (0-0.6) 10^3/ul Absolute Basos (auto) (0-0.2) 10^3/ul Absolute Nucleated RBC 10^3/ul Nucleated RBC % INR (Anticoag Therapy) (0.77-1.02) APTT (26.0-36.3) seconds Sodium (135-145) mmol/L Potassium (3.5-5.0) mmol/L Chloride (101-111) mmol/L Carbon Dioxide (22-32) mmol/L Anion Gap (2-11) mmol/L BUN (6-24) mg/dL Creatinine (0.67-1.17) mg/dL Est GFR ( Amer) (>60) Est GFR (Non-Af Amer) (>60) BUN/Creatinine Ratio (8-20) Glucose (70-100) mg/dL Calcium (8.6-10.3) mg/dL Total Bilirubin (0.2-1.0) mg/dL AST (13-39) U/L ALT (7-52) U/L Alkaline Phosphatase (34-104) U/L Troponin I (<0.04) ng/mL Total Protein (6.4-8.9) g/dL Albumin (3.2-5.2) g/dL Globulin (2-4) g/dL Albumin/Globulin Ratio (1-3) Lipase (11.0-82.0) U/L Urine Color Yellow Urine Appearance Clear Urine pH 7.0 (5-9) Ur Specific [place] 1.011 (1.010-1.030) Urine Protein 1+(30 mg/dl) A (Negative) Urine Ketones Negative (Negative) Urine Blood Negative (Negative) Urine Nitrate Negative (Negative) Urine Bilirubin Negative (Negative) Urine Urobilinogen Negative (Negative) Ur Leukocyte Esterase Negative (Negative) Urine WBC (Auto) Absent (Absent) Urine RBC (Auto) Trace(0-2/hpf) (Absent) Urine Bacteria Absent (Absent) Urine Glucose Negative (Negative) Result Diagrams: 01/14/18 13:22 01/14/18 13:22 Lab Statement: Any lab studies that have been ordered have been reviewed, and results considered in the medical decision making process. - CT ct abd/pel CT Interpretation Completed By: Radiologist Summary of CT Findings: IMPRESSION: #. Trace RIGHT and small LEFT dependent pleural effusions with proportional basilar. atelectasis. #. Splenomegaly. # . Small volume of ascites at the dependent pelvis. No loculated peritoneal abscess. collection evident. Negative for free air. #. Postsurgical change at the RIGHT groin corresponding with history of inguinal hernia. repair. There is edematous thickening of the RIGHT groin abdominal wall musculature with associated soft tissue gas including extension through retroperitoneum along the RIGHT. pelvic sidewall. There is mixed soft tissue density and fluid density enlargement of the. RIGHT inguinal canal extending to the caudal aspect of the tivjl-sc-laed above the scrotum. with the RIGHT inguinal canal measuring up to 3.0 x 3.6 cm cross-sectional diameter. compared with 1.9 x 1.9 cm on the contralateral side. Correlate with clinical assessment. for potential cellulitis at the surgical bed. #. 4 cm maximum dimension retroareolar mass at the LEFT breast warranting clinical. correlation and potential nonemergent further imaging assessment with mammography and. ultrasound. This report was reviewed by ed physician. Re-Evaluation - Re-Evaluation First Eval Re-Evaluation Time: 18:42 Comment: Discussed results of labs and tests as well as consult with patient, he is agreeable with Jono follow up and discharge. Abdominal Pain Fem Course/Dx - Course Course Of Treatment: Patient is a 87 y/o M w/ c/o diffuse abdominal pain and swelling as well as difficulty urinating in the past few days. He had a hernia repair four days ago, patient was referred to ED by Dr. Rodriguez for Sx. On physical exam, abdomen was soft, RLQ incision was CDI, diffuse lower abdominal tenderness is noted. Genital Exam: scrotum was enlarged, ecchymosis to inferior aspect. Post void bladder scan showed 0ml urine in bladder. UA showed 1+ protein, trace RBC. Labs showed lipase < 10, alk phos 113, trop 0, creatinine 1.21, WBC 6.1. CT abd/pel impressions are noted above. 1838 - Dr. Bustamante, stone rougher surgeon was consulted with regards to patient' ct abd/pel. He states that patient can be discharged and follow up with Dr. De La Cruz, who performed patient' s hernia operation. Discussed results of labs and tests as well as consult with patient, he is agreeable with Jono follow up and discharge. Dx of post- operative ecchymosis. - Diagnoses Provider Diagnoses: Postoperative ecchymosis - Provider Notifications Discussed Care Of Patient With: Cole Bustamante Time Discussed With Above Provider: 18:39 Instructed by Provider To: Other - 1838 - Dr. Bustamante, stone rougher surgeon was consulted with regards to patient' ct abd/pel. He states that patient can be discharged and follow up with Dr. De La Cruz, who performed patient's hernia operation. Discharge - Sign-Out/Discharge Documenting (check all that apply): Patient Departure - discharge - Discharge Plan Condition: Stable Disposition: HOME Patient Education Materials: Contusion in Adults (ED) Referrals: Jh De La Cruz MD [Medical Doctor] - Shawn Mosher MD [Primary Care Provider] - Additional Instructions: Take all medications as previously instructed. return if worse or any new symptoms. Please call Dr. De La Cruz's office for a follow up appt. Dirnk plenty of fluids. take fiber to help prevent severe constipation. - Billing Disposition and Condition Condition: STABLE Disposition: Home - Attestation Statements Document Initiated by Cristopher: Yes Documenting Scribe: Lev Ibarra Provider For Whom Cristopher is Documenting (Include Credential): Kyra Tatum MD Scribe Attestation: Lev Louis , scribed for Kyra Tatum MD on 01/17/18 at 1754. Scribe Documentation Reviewed: Yes Provider Attestation: The documentation as recorded by the Lev awad accurately reflects the service I personally performed and the decisions made by me, Kyra Tatum MD
[2018-01-14 19:24] VITALS: BP 138/79
== END 2018-01-14 19:10 | disposition home or self-care (01) ==
LOC: ED 12:03
DX: R58 Hemorrhage, not elsewhere classified (principal); N99.820 Postprocedural hemorrhage of a genitourinary system organ or structure following a genitourinary system procedure; I10 Essential (primary) hypertension; Z79.82 Long term (current) use of aspirin; E03.9 Hypothyroidism, unspecified; I25.10 Atherosclerotic heart disease of native coronary artery without angina pectoris; K21.9 Gastro-esophageal reflux disease without esophagitis
CPT/HCPCS: 36415; 74177; 80053; 81003; 81015; 83690; 84484; 85025; 85610; 85730; 96374; 99282; Q9967

== ENCOUNTER 2018-09-02 09:25 | Emergency (ER) | payer MEDICARE, BC ==
[2018-09-02 09:43] VITALS: BP 146/69
--- NOTE | 2018-09-02 09:47 | UC ---
Skin Complaint HPI - HPI Summary HPI Summary: 88-year-old male who noticed a bruised area to his left forearm in the past 24 hours. He does not recall any injury. He is not on any blood thinners. - History of Current Complaint Chief Complaint: UCSkin Time Seen by Provider: 09/02/18 09:44 Stated Complaint: SKIN ISSUE Hx Obtained From: Patient Onset/Duration: Gradual Onset Skin Exposure Onset/Duration: Hours Ago Timing: Constant Onset Severity: Mild Current Severity: Mild Pain Intensity: 0 Location: Other - Left forearm dorsal side. Aggravating Factor(s): Nothing Alleviating Factor(s): Nothing Associated Signs & Symptoms: Positive: Negative Related History: Other: - No known trauma. - Allergy/Home Medications Allergies/Adverse Reactions: Allergies Allergy/AdvReac Type Severity Reaction Status Date / Time No Known Allergies Allergy Verified 09/02/18 09:41 PMH/Surg Hx/FS Hx/Imm Hx Previously Healthy: Yes Endocrine History: Thyroid Disease Cardiovascular History: Hypertension - Surgical History Surgical History: Yes Surgery Procedure, Year, and Place: BILATERAL CATARACT EXTRACTION WITH IOL IMPLANTS, [facility]. 2014 RIGHT CARPAL TUNNEL RELEASE, [facility], PRECANCEROUS GROWTHS REMOVED FROM SCALP, vein sx on rt leg july 2015 - Family History Known Family History: Positive: Hypertension - Social History Occupation: Retired Alcohol Use: Occasionally Alcohol Amount: ONCE A WEEK Substance Use Type: None Smoking Status (MU): Never Smoked Tobacco - Immunization History Most Recent Influenza Vaccination: 2013/2014 Most Recent Tetanus Shot: In ED Most Recent Pneumonia Vaccination: Unknown exact time; pt states has had in past Review of Systems All Other Systems Reviewed And Are Negative: Yes Skin: Positive: Bruising, Other - Bruised areas to left forearm dorsal side. No complaints of pain. No known trauma. Is Patient Immunocompromised?: No Physical Exam Triage Information Reviewed: Yes Appearance: Well-Appearing, No Pain Distress, Well-Nourished Vital Signs: Initial Vital Signs Temp 98.4 F 09/02/18 09:36 Pulse 68 09/02/18 09:36 Resp 18 09/02/18 09:36 BP 146/69 09/02/18 09:36 Pulse Ox 98 09/02/18 09:36 Vital Signs Reviewed: Yes Musculoskeletal Exam: Normal Neurological Exam: Normal Psychological Exam: Normal Skin: Positive: Other - Patient has a superficial hematoma to the left forearm dorsal side approximately 1.0 cm x 1.0 cm. No secondary skin infection, no streaking, no swelling. Course/Dx - Course Course Of Treatment: This is a very nice 88-year-old male who has a superficial hematoma underneath the skin I believe he may have hit his left forearm on something because it appears very close to the vein. There is bleeding is controlled and is not spreading. This has occurred over the past 24 hours. He is to observe for any worsening symptoms and follow-up with his primary care provider as needed. - Diagnoses Provider Diagnosis: Ruptured varicosity Discharge - Sign-Out/Discharge Documenting (check all that apply): Patient Departure All imaging exams completed and their final reports reviewed: No Studies - Discharge Plan Condition: Good Disposition: HOME Patient Education Materials: Hematoma (ED) Referrals: Shawn Mosher MD [Primary Care Provider] - Additional Instructions: Warm moist compresses to the area intermittently. Follow-up with your primary care provider for any worsening symptoms. - Billing Disposition and Condition Condition: GOOD Disposition: Home
== END 2018-09-02 09:55 | disposition home or self-care (01) ==
LOC: UCEAST 09:25
DX: I77.0 Arteriovenous fistula, acquired (principal); E03.9 Hypothyroidism, unspecified; I10 Essential (primary) hypertension
CPT/HCPCS: 99211; G0463

== ENCOUNTER 2018-10-21 15:40 | Emergency (ER) | payer MEDICARE, BC ==
--- NOTE | 2018-10-21 17:00 | UC ---
Head Injury HPI - HPI Summary HPI Summary: Mr. Sofia presented today after falling 5 times in the last 7 days. He has an appointment with his PCP tomorrow for this problem but is concerned because a visiting nurse who recommended that he have his head checked out. He hit his head each time he fell and caused it to bleed a few days ago. He scraped his arm and that today's fall but did not hit his head. He denies any symptoms aside from the frequent falls and is not on a blood thinner. - History Of Current Complaint Chief Complaint: UCGeneralIllness Stated Complaint: HEAD INJURY Time Seen by Provider: 10/21/18 16:29 Hx Obtained From: Patient, Family/Pizza Delivery Driver Onset/Duration: Gradual Onset Severity Currently: Moderate Severity Initially: Moderate Pain Intensity: 5 Aggravating Factor(s): Nothing Alleviating Factor(s): Nothing Associated Signs And Symptoms: Positive: Negative - Allergies/Home Medications Allergies/Adverse Reactions: Allergies Allergy/AdvReac Type Severity Reaction Status Date / Time No Known Allergies Allergy Verified 10/21/18 15:52 PMH/Surg Hx/FS Hx/Imm Hx Endocrine History: Diabetes, Dyslipidemia Cardiovascular History: Hypertension GI/ History: Renal Disease - Surgical History Surgical History: Yes Surgery Procedure, Year, and Place: BILATERAL CATARACT EXTRACTION WITH IOL IMPLANTS, [facility]. 2014 RIGHT CARPAL TUNNEL RELEASE, [facility], PRECANCEROUS GROWTHS REMOVED FROM SC[facility]P, vein sx on rt leg july 2015 - Family History Known Family History: Positive: Hypertension - Social History Alcohol Use: Occasionally Alcohol Amount: ONCE A WEEK Substance Use Type: None Smoking Status (MU): Never Smoked Tobacco - Immunization History Most Recent Influenza Vaccination: Most Recent Tetanus Shot: not sure Most Recent Pneumonia Vaccination: Unknown exact time; pt states has had in past Review of Systems All Other Systems Reviewed And Are Negative: Yes Constitutional: Positive: Negative Skin: Positive: Other - abrasions Eyes: Positive: Negative ENT: Positive: Other - he has a cut on the top of his head Motor: Positive: Other - losing his balance a lot Neurovascular: Positive: Negative Musculoskeletal: Positive: Negative Neurological: Positive: Negative Physical Exam - Summary Physical Exam Summary: He is nontoxic in appearance with stable vital signs. Triage Information Reviewed: Yes Appearance: Well-Appearing, No Pain Distress Vital Signs: Initial Vital Signs Temp 97.6 F 10/21/18 15:47 Pulse 105 10/21/18 15:47 Resp 16 10/21/18 15:47 BP 136/66 10/21/18 15:47 Pulse Ox 96 10/21/18 15:47 Vital Signs Reviewed: Yes Eye Exam: Normal ENT Exam: Other - He has an abrasion on the crown of his head. Neck exam: Normal Respiratory Exam: Normal Cardiovascular Exam: Normal Abdominal Exam: Normal Neurological Exam: Other - He is mildly off balance if he tries to move too quickly. Diagnostics - Radiology Brain CT Radiology Interpretation Completed By: Radiologist Summary of Radiographic Findings: No acute process Head Injury Course/Dx - Course Course Of Treatment: He was reassured that his CT is okay and will follow up with his PCP tomorrow for further evaluation of his balance difficulties. - Differential Dx/Diagnosis Provider Diagnosis: Ataxia Discharge - Sign-Out/Discharge Documenting (check all that apply): Patient Departure All imaging exams completed and their final reports reviewed: Yes - Discharge Plan Condition: Stable Disposition: HOME Patient Education Materials: Head Injury (ED) Referrals: Shawn Mosher MD [Primary Care Provider] - - Billing Disposition and Condition Condition: STABLE Disposition: Home
[2018-10-21 18:16] VITALS: BP 182/82
== END 2018-10-21 18:49 | disposition home or self-care (01) ==
LOC: UCEAST 15:40
DX: R27.0 Ataxia, unspecified (principal); E78.5 Hyperlipidemia, unspecified; I12.9 Hypertensive chronic kidney disease with stage 1 through stage 4 chronic kidney disease, or unspecified chronic kidney disease; N18.9 Chronic kidney disease, unspecified; Z91.81 History of falling
CPT/HCPCS: 70450; 99212; G0463

== ENCOUNTER 2019-05-08 13:38 | Emergency (ER) | payer MEDICARE, BC ==
[2019-05-08 13:52] VITALS: BP 171/90
[2019-05-08] MEDS ORDERED: Mupirocin 2% OINT* TUBE TOPICAL ONE (14:50)
--- NOTE | 2019-05-08 14:59 | UC ---
Skin Complaint HPI - HPI Summary HPI Summary: 89-year-old male comes in with a chief complaint of open sores is left lower leg. 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 His edema is managed by his primary care doctor and he is on furosemide. Denies any shortness of breath. He also sees the wound care clinic and a pastoral worker Dr. Harris for treating these edema sores. In the past she's been treated with a combination of clobetasol and mupirocin ointment by Dr. Harris. He's out of these medications at this time. Fevers no chills. Drainage is been mostly clear no pus. No streaking. Feels his normal self otherwise. - History of Current Complaint Chief Complaint: UCLowerExtremity Time Seen by Provider: 05/08/19 14:37 Stated Complaint: SORES ON LT ANKLE Pain Intensity: 8 - Allergy/Home Medications Allergies/Adverse Reactions: Allergies Allergy/AdvReac Type Severity Reaction Status Date / Time No Known Allergies Allergy Verified 05/08/19 13:52 Home Medications: Home Medications Pravastatin (NF) [Pravachol (NF)] 10 mg PO QAM 10/22/14 [History Confirmed 05/08] Finasteride TAB* [Proscar TAB*] 5 mg PO QAM 10/31/15 [History Confirmed 05/08/19 ] Levothyroxine TAB* [Synthroid 25 MCG TAB*] 25 mcg PO 0800 02/23/16 [History Confirmed 05/08/19] Furosemide TAB* [Lasix TAB*] 20 - 40 mg PO DAILY 12/25/17 [History Confirmed ] Omeprazole CAP (NF) [Prilosec CAP* 20 MG] 20 mg PO QAM 12/25/17 [History Confirmed 05/08/19] Aspirin EC TAB* [Ecotrin EC Low Dose 81 MG*] 81 mg PO DAILY 01/14/18 [History Confirmed 05/08/19] Metoprolol Succinate XL TAB* [Toprol XL TAB*] 50 mg PO BID 01/14/18 [History Confirmed 05/08/19] Multivitamin [Men's Multi-Vitamin] 1 tab PO DAILY 01/14/18 [History Confirmed ] [place]-3S/Dha/Epa/Fish Oil [[place]-3 Gummies] 1 tab.chew PO DAILY 01/14/18 [ History Confirmed 05/08/19] rOPINIRole TAB* [Requip TAB*] 1 mg PO QAM 01/14/18 [History Confirmed 05/08/19] rOPINIRole TAB* [Requip TAB*] 2 mg PO QPM 01/14/18 [History Confirmed 05/08/19] Clobetasol Propionate 1 applic TOPICAL BID #15 gm 05/08/19 [Rx] Mupirocin 1 applic TOPICAL BID #22 gm 05/08/19 [Rx] PMH/Surg Hx/FS Hx/Imm Hx Previously Healthy: Yes - chronic pedal edema. Endocrine History: Dyslipidemia Cardiovascular History: Hypertension GI/ History: Gastroesophageal Reflux - Surgical History Surgical History: Yes Surgery Procedure, Year, and Place: BILATERAL CATARACT EXTRACTION WITH IOL IMPLANTS, [facility]. 2014 RIGHT CARPAL TUNNEL RELEASE, [facility], PRECANCEROUS GROWTHS REMOVED FROM [facility],. vein sx on rt leg july 2015 - OFFICE PROCEDURE - NO STENTS. HERNIA REPAIR - Family History Known Family History: Positive: Hypertension - Social History Alcohol Use: Rare Alcohol Amount: ONCE A WEEK Substance Use Type: None Smoking Status (MU): Never Smoked Tobacco - Immunization History Most Recent Influenza Vaccination: Most Recent Tetanus Shot: not sure Most Recent Pneumonia Vaccination: Unknown exact time; pt states has had in past Review of Systems All Other Systems Reviewed And Are Negative: Yes Constitutional: Positive: Negative Skin: Positive: Other - SEE HPI Eyes: Positive: Negative ENT: Positive: Negative Respiratory: Positive: Negative Cardiovascular: Positive: Negative Gastrointestinal: Positive: Negative Motor: Positive: Negative Neurovascular: Positive: Negative Musculoskeletal: Positive: Edema Neurological/Mental Status: Positive: Negative Psychological: Positive: Negative Is Patient Immunocompromised?: No Physical Exam Triage Information Reviewed: Yes Appearance: Well-Appearing, No Pain Distress, Well-Nourished Vital Signs: Initial Vital Signs Temp 96.8 F 05/08/19 13:44 Pulse 63 05/08/19 13:44 Resp 20 05/08/19 13:44 BP 171/90 05/08/19 13:44 Pulse Ox 95 05/08/19 13:44 Vital Signs Reviewed: Yes Eye Exam: Normal Eyes: Positive: Conjunctiva Clear Neck: Positive: Supple Respiratory: Positive: Lungs clear, Normal breath sounds, No respiratory distress Cardiovascular: Positive: RRR Musculoskeletal: Positive: Strength Intact, ROM Intact, Edema @ - B/L Neurological: Positive: Alert Psychological: Positive: Age Appropriate Behavior Skin: Positive: Other - Left lower extremity has 2 open areas of edema sores. Smaller one is 2 cm x 1 cm. Larger one is 4 cm x 1 cm. Serous drainage. No foul odor. No streaking. Course/Dx - Course Course Of Treatment: I represcribed the clobetasol and mupirocin that the patient will use with nonstick dressings and he is going to follow-up with either the wound clinic or Dr. Harris for the edema sores. He'll follow-up his primary care doctor for his edema. He is to get reevaluated sooner if worse or any questions or concerns. - Diagnoses Provider Diagnosis: Pedal edema, Skin breakdown Discharge ED - Sign-Out/Discharge Documenting (check all that apply): Patient Departure All imaging exams completed and their final reports reviewed: No Studies - Discharge Plan Condition: Stable Disposition: HOME Prescriptions: Clobetasol Propionate 1 applic TOPICAL BID #15 gm Mupirocin 1 applic TOPICAL BID #22 gm Patient Education Materials: Acute Wound Care (ED), Leg Edema (ED) Referrals: Shawn Mosher MD [Primary Care Provider] - WOUND CARE AT [facility] [place] [Provider Group] Dana Harris MD [Medical Doctor] - Additional Instructions: FOLLOW UP WITH YOUR CFO CONTROLLER AND/OR THE WOUND CARE CLINIC FOR YOUR LEFT LEG WOUND. FOLLOW UP WITH YOUR PRIMARY CARE DOCTOR FOR YOUR EDEMA. GET REEVALUATED SOONER IF NOT IMPROVED OR WORSE OR ANY QUESTIONS OR CONCERNS. - Billing Disposition and Condition Condition: STABLE Disposition: Home
== END 2019-05-08 15:38 | disposition home or self-care (01) ==
LOC: UCEAST 13:38
DX: R60.0 Localized edema (principal); R23.8 Other skin changes; E78.5 Hyperlipidemia, unspecified; I10 Essential (primary) hypertension; K21.9 Gastro-esophageal reflux disease without esophagitis; Z79.899 Other long term (current) drug therapy; Z79.82 Long term (current) use of aspirin
CPT/HCPCS: 99213; G0463